=== PATIENT | female | born 1970 | race Caucasian/White ===

== ENCOUNTER → 2020-05-21 13:13 | Outpatient (CLI) | payer OTHER, SELFPAY ==
--- NOTE | ~2020-05-21 | XR_ITS ---
EXAMINATION: XR foot LT 2V EXAM DATE: 05/21/2020 15:16 INDICATION: No known recent injury provided at this time. Pain of the left foot. Arthritis. TECHNIQUE: Frontal and lateral projections of the left foot. Correlation is made to contralateral fo ot same date. FINDINGS: There is mild left 1st metatarsophalangeal joint primary osteoarthritis. There are no bony erosions identified. Small calcaneal inferior spur. There are no acute fractures or dislocations shilpa ntified. There is no subcutaneous gas. The soft tissue is unremarkable. There are no radiopaque f oreign bodies. IMPRESSION: 1. Small left calcaneal inferior spur. 2. Mild 1st MTP osteoarthritis. Reviewed, dictated and finalized at location B. MACHINE
--- NOTE | ~2020-05-21 | XR_ITS ---
EXAMINATION: XR sacroiliac joints min 3V DATE: 05/21/2020 15:16 INDICATION: Chronic joint pain TECHNIQUE: Frontal and left and right oblique views of the lateral sacral iliac joints were obtained. COMPARISON: CT dated 10/02/2016 FINDINGS: Bone alignment is normal. No fracture. Mild bilateral hip and sacroiliac osteoarthritis. No cortical erosions or subarticular sclerosis at the bilateral sacral joints to suggest an inflammatory sacroili itis. IMPRESSION: 1. Mild bilateral hip and sacroiliac osteoarthritis. Reviewed, dictated and finalized at location H. SPECIALIST
--- NOTE | ~2020-05-21 | XR_ITS ---
EXAMINATION: XR hand RT 2V EXAM DATE: 05/21/2020 15:16 INDICATION: Arthritis. Bilateral hand pain. TECHNIQUE: Right hand frontal, lateral projections obtained and reviewed. Correlation is made to cont ralateral hand same date. FINDINGS: Right metacarpal bones are unremarkable. There is mild to moderate 2nd distal interphalang eal primary osteoarthritis. Otherwise mild diffuse polyarticular interphalangeal and 1st carpometaca rpal joint primary osteoarthritis. There are no bony erosions identified. There are no acute fracture s or dislocations identified. There is no subcutaneous gas. The soft tissue is unremarkable. Ther e are no radiopaque foreign bodies. IMPRESSION: Particular osteoarthritis, mild to moderate at the 2nd DIP joint. Reviewed, dictated and finalized at location B. PSYCHOLOGIST
--- NOTE | ~2020-05-21 | XR_ITS ---
EXAMINATION: XR shoulder LT min 2V EXAM DATE: 05/21/2020 15:16 INDICATION: Arthritis, left shoulder pain. TECHNIQUE: The following left shoulder projections obtained: frontal projection with internal rotatio n, frontal projection with external rotation, Grashey, and axillary (4+ views). There is no prior st udy for comparison. FINDINGS: No evidence of left shoulder rotator cuff calcific tendinosis. There is mild glenohumera l and acromioclavicular primary osteoarthritis. There are no acute fractures or dislocations identifi ed. There is no subcutaneous gas. The soft tissue is unremarkable. There are no radiopaque foreig n bodies. IMPRESSION: Mild left shoulder osteoarthritis. Reviewed, dictated and finalized at location B. OMATIC INTERPRETER/TRANSLATOR
--- NOTE | ~2020-05-21 | XR_ITS ---
EXAMINATION: XR hip BI wo pelvis DATE: 05/21/2020 15:18 INDICATION: Arthritis. TECHNIQUE: 2 views of right hip and 2 views of left hip were obtained. COMPARISON: CT abdomen and pelvis 10/02/16 FINDINGS: Bone alignment is normal. No fracture. There is mild osteoarthritis of the hips. There is m ild lumbar spondylosis. IMPRESSION: 1. Mild osteoarthritis of the hips. Reviewed, dictated and finalized at location A. ANICAL ENGINEERING SPECIALIST
--- NOTE | ~2020-05-21 | XR_ITS ---
EXAMINATION: XR foot RT 2V EXAM DATE: 05/21/2020 15:16 INDICATION: Arthritis. Right foot pain. TECHNIQUE: Frontal and lateral projections of the right foot. Correlation is made to contralateral f oot same date. FINDINGS: There is mild right 1st metatarsophalangeal primary osteoarthritis. Small inferior and pos terior calcaneal spurs. There are no bony erosions identified. There are no acute fractures or disloc ations identified. There is no subcutaneous gas. The soft tissue is unremarkable. There are no ra diopaque foreign bodies. IMPRESSION: 1. Small calcaneal spurs. 2. Mild right 1st MTP osteoarthritis. Reviewed, dictated and finalized at location B. DICHLOROBENZENE MACHINE OPERATOR
--- NOTE | ~2020-05-21 | XR_ITS ---
EXAMINATION: XR hand LT 2V EXAM DATE: 05/21/2020 15:16 INDICATION: Arthritis. TECHNIQUE: Frontal and lateral projections of the left hand. Correlation is made to contralateral dinh nd same date. FINDINGS: There is mild diffuse left hand interphalangeal primary osteoarthritis. There are no bony erosions identified. There are no acute fractures or dislocations identified. There is no subcutan eous gas. The soft tissue is unremarkable. There are no radiopaque foreign bodies. IMPRESSION: Mild polyarticular left interphalangeal joint osteoarthritis. Reviewed, dictated and finalized at location B. R CAR DRIVER
== END ==
DX: L40.50 Arthropathic psoriasis, unspecified (principal); M18.11 Unilateral primary osteoarthritis of first carpometacarpal joint, right hand; M19.072 Primary osteoarthritis, left ankle and foot; Z51.81 Encounter for therapeutic drug level monitoring; Z79.899 Other long term (current) drug therapy; M47.818 Spondylosis without myelopathy or radiculopathy, sacral and sacrococcygeal region; M16.0 Bilateral primary osteoarthritis of hip; M19.042 Primary osteoarthritis, left hand; M19.041 Primary osteoarthritis, right hand; M19.071 Primary osteoarthritis, right ankle and foot; M77.32 Calcaneal spur, left foot; M77.31 Calcaneal spur, right foot; M19.012 Primary osteoarthritis, left shoulder; M19.011 Primary osteoarthritis, right shoulder
CPT/HCPCS: 72202; 73030; 73120; 73521; 73620

== ENCOUNTER 2020-11-23 17:33 | Emergency (ER) | payer OTHER, SELFPAY ==
[2020-11-23] VITALS (8 sets, daily range): BP systolic 133–146; BP diastolic 84–87; PULSE 84–105; RESP 12–19; TEMP 36.5–36.8; O2SAT 97–99
--- NOTE | ~2020-11-23 | CT_ITS ---
EXAMINATION: CTA brain carotid DATE: 11/23/2020 20:55 CDT INDICATION: Vision disturbance. TECHNIQUE: Computed tomographic angiography (CTA) of the head was performed without and with 100 mL O mnipaque-350 intravenous contrast. CTA of the neck was performed with intravenous contrast. The dose- length product was 1810.75 mGy-cm. Maximum intensity projection and volume rendered 3D-reconstruction s were created by the technologist on a separate workstation. COMPARISON: CT dated 07/13/2016. FINDINGS: HEAD CT/CTA: CT head limited by contrast administration. No acute intracranial hemorrhage, infarction , mass or mass effect. No ventriculomegaly or midline shift. No abnormal contrast enhancement. The ve rtebral, basilar, anterior, middle and posterior cerebral arteries are unremarkable. No evidence for significant stenosis, occlusion or aneurysm. Orbits are symmetric without disconjugate gaze. No orbit al or retro-orbital abnormalities. NECK CTA: The common and internal carotid arteries are within normal limits without evidence for significant at herosclerotic change, aneurysm, stenosis or dissection. There are mildly prominent cervical and submandibular lymph nodes, likely reactive. Thyroid gland is unremarkable. Lung apices are normal. There is 0% stenosis of the proximal right internal carotid artery relative to normal distal artery l umen diameter (NASCET criteria). There is 0% stenosis of the proximal left internal carotid artery re lative to normal distal artery lumen diameter. IMPRESSION: 1. No acute intracranial abnormality. 2: No significant abnormality of the neck or head arteries. No significant stenosis, occlusion, aneur ysm or dissection. 3: 0% stenosis of the proximal right internal carotid artery relative to normal distal artery lumen d iameter (NASCET criteria). 4: 0% stenosis of the proximal left internal carotid artery relative to normal distal artery lumen di ameter. Reviewed, dictated and finalized at location A. IMPRESSION: 1. No acute intracranial abnormality. 2: No significant abnormality of the neck or head arteries. No significant sten osis, occlusion, aneurysm or dissection. 3: 0% stenosis of the proximal right internal carotid artery relative to normal distal artery lumen diameter (NASCET criteria). 4: 0% stenosis of the proximal left internal carotid artery relative to normal distal artery lumen diameter.
--- NOTE | 2020-11-23 18:51 | ECG_ITS ---
Measurements Intervals [place] Rate: 84 P: 55 [place]: 189 QRS: 78 QRSD: 85 T: 61 QT: 370 QTc: 439 Interpretive Statements SINUS RHYTHM BASELINE ARTIFACT- I, II, III, AVR, AVL, AVF NORMAL ECG Electronically Signed On 11-23-2020 20:02:52 CDT by Idris Lala D.O.
--- NOTE | 2020-11-23 19:38 | ED.GENADULT ---
HPI - General Adult General Chief complaint: Eye Problems Stated complaint: vision problems Time Seen by Provider: 11/23/20 18:03 Source: patient and RN notes reviewed Mode of arrival: ambulatory Limitations: no limitations History of Present Illness HPI narrative: Patient is a 50-year-old female who presents for evaluation of disturbance in the left eye noting that she had a kaleidoscope-like vision out of the left eye that began last night and then was noticed again today patient notes on the way to the emergency department that this had resolved patient denies any focal neurologic deficits or symptoms Related Data Home Medications Medication Instructions Recorded Confirmed adalimumab [Humira(CF) Pen] mg SUBCUT 11/23/20 alprazolam 11/23/20 amlodipine 11/23/20 cetirizine mg 11/23/20 clonidine HCl 11/23/20 losartan 11/23/20 metformin mg 11/23/20 pantoprazole PO 11/23/20 spironolactone 11/23/20 zolpidem 11/23/20 11/23/20 Allergies Allergy/AdvReac Type Severity Reaction Status Date / Time adhesive Allergy Mild Unknown Verified 11/23/20 18:32 latex Allergy Mild Unknown Verified 11/23/20 18:32 vitamin K2 Allergy Unknown Unknown Verified 11/23/20 18:32 morphine AdvReac Unknown Nausea Verified 11/23/20 18:32 Review of Systems Review of Systems: All systems reviewed & are unremarkable except as noted in HPI and below PMFSH Past Medical History Medical History Anxiety Diabetes mellitus Gastroesophageal reflux disease Hypertension Rheumatoid arthritis Social History Social History Smoking status: Never smoker Exam Narrative: Exam Narrative: GENERAL: Well-appearing, well-nourished, and in no acute distress. HEAD: Normocephalic, atraumatic. EYES: PERRLA and EOMI. no conjunctival injection or discharge noted ENT: Nares clear, no rhinorrhea or epistaxis. Mucous membranes moist. NECK: Supple. No adenopathy or masses. CHEST: Clear to auscultation. No respiratory distress. No wheezes rales or rhonchi HEART: Regular rate and rhythm. No murmur heard. Normal peripheral pulses. ABDOMEN: Soft, nontender, nondistended EXTREMITIES: Normal range of motion. No edema. SKIN: Warm, dry, no rash. NEURO: No focal deficits. Alert and oriented x3. Cranial nerves II through XII grossly intact. Normal speech and gait. Cerebellar intact. Motor and sensory intact and symmetrical in extremities PSYCH: Normal mood and affect. Course Course Emergency Course: Patient presented with floaters in the left eye she had resolution prior to discharge that began last night patient at this time is in no distress with normal vision will be discharged home with plan to follow with ophthalmology has been given an emergency plan to go to a tertiary facility with ophthalmology if her symptoms worsen and then if her symptoms remain resolved have her follow-up with ophthalmology outpatient and was given a resource for this. Patient agrees with this plan. Imaging results reviewed with the patient as well as her blood work and evaluation. Vital Signs Vital signs: Vital Signs Temperature 97.7 F 11/23/20 17:45 Pulse Rate 105 H 11/23/20 17:45 Respiratory Rate 16 11/23/20 17:45 Blood Pressure 146/87 H 11/23/20 17:45 Pulse Oximetry 97 11/23/20 17:45 Temperature 98.3 F 11/23/20 18:22 Pulse Rate 95 11/23/20 18:22 Respiratory Rate 18 11/23/20 18:22 Blood Pressure 133/84 11/23/20 18:22 Pulse Oximetry 99 11/23/20 18:22 Medical Decision Making MDM Narrative Medical decision making narrative: Patients visual floaters had resolved. There are no focal neurological deficits on exam. Subarachnoid hemorrhage is felt to be unlikey at this time. There is no history of fever, and neck is supple without meningismus, making meningitis unlikely. No traumatic history or signs of trauma on exam. No risk fact
[2020-11-23 19:47] LABS: Basophils Absolute Auto 0.1 K/mm3 (0.0-0.1); Basophils Percent Auto 0.9 % (0.2-1.2); Eosinophils Absolute Auto 0.2 K/mm3 (0-0.3); Hematocrit 34.1 % (37.0-47.0); Immature Granulocyte Absolute 0.07 K/mm3 (0.00-0.031); Immature Granulocyte Percent A 0.6 % (0-0.5); Lymphocytes Absolute Auto 1.81 K/mm3 (0.9-3.2); Lymphocytes Percent Auto 15.4 % (18.3-44.2); Mean Corpuscular HGB Conc 32.3 g/dl (32-36); Mean Corpuscular Hemoglobin 26.6 pg (26-34); Mean Corpuscular Volume 82.4 fl (80-100); Mean Platelet Volume 11.1 fl (7.4-10.4); Monocytes Absolute Auto 0.6 K/mm3 (0.1-0.6); Neutrophils Percent Auto 76.1 % (45.5-73.1); Platelet Count Result 342 k/mm3 (150-375); Red Blood Count 4.14 M/mm3 (4.2-5.4); Red Cell Distribution Width 15.1 % (11.5-14.5); White Blood Count 11.8 K/mm3 (4.5-10.0)
[2020-11-23 19:57] LABS: Anion Gap 11 mmol/L (8-16); Blood Urea Nitrogen 10 mg/dL (7-17); Calcium 9.2 mg/dL (8.4-10.2); Carbon Dioxide 22 mmol/L (22-30); Chloride 107 mmol/L (98-107); Estimated CRCL calculation 82 ml/min; Estimated Glomerular Filt Rate > 60; Glucose 148 mg/dL (65-105); Partial Thromboplastin Time 30.7 SECONDS (22.3-36.8); Potassium 4.1 mmol/L (3.4-5.0); Prothrombin Time 13.8 Seconds (11.1-14.7); Sodium 140 mmol/L (137-145)
[2020-11-23] MEDS: LORazepam INJ (*CRX) 2 MG/ML VIAL 1 MG IV PUSH (21:13)
== END 2020-11-23 22:10 | disposition home or self-care (01) ==
PROVIDERS: Emergency Medicine Emergency Medical Services; Emergency Provider Emergency Medicine; PCP Family Medicine
DX: H53.9 Unspecified visual disturbance (principal); E11.9 Type 2 diabetes mellitus without complications; K21.9 Gastro-esophageal reflux disease without esophagitis; M06.9 Rheumatoid arthritis, unspecified; F41.9 Anxiety disorder, unspecified; Z79.84 Long term (current) use of oral hypoglycemic drugs
CPT/HCPCS: 36415; 70496; 70498; 80048; 85025; 85610; 85730; 93005; 96374; 99284; J2060; Q9967

== ENCOUNTER 2021-02-09 16:48 | Emergency (ER) | payer OTHER, SELFPAY ==
--- NOTE | ~2021-02-09 | CT_ITS ---
EXAMINATION: CT abdomen pelvis w con DATE: 02/09/2021 18:39 INDICATION: Left flank pain TECHNIQUE: Computed tomography (CT) of the abdomen and pelvis was performed with 100 mL Omnipaque-350 intravenous contrast. Automated exposure control and iterative reconstruction technique were employe d. The dose-length product was 787.10 mGy-cm. COMPARISON: 10/02/2016 FINDINGS: Mild dependent atelectasis in the left lower lobe. Unchanged 3 mm right middle lobe granuloma. Heart size is normal. No pericardial or pleural effusion. Cholecystectomy clips at the gallbladder fossa. M ild diffuse hepatic steatosis. Spleen, pancreas, bilateral adrenal glands and kidneys are normal. Rosendo ateral renal cysts, the larger on the right measuring 12 mm. Bilateral nephrolithiasis including a co uple nonobstructing 2 mm stones at lower pole of the right kidney and 5 mm and 4 mm stones in upper p ole calyx of the left kidney. There is a mildly delayed left nephrogram with mild left hydronephrosis and proximal left hydroureter. Mild enhancing urothelial thickening at the proximal left ureter but no evident obstructing ureteral stone. Status post appendectomy with surgical clips near the tip the cecum. Mild diverticulosis at the sigmoid colon without adjacent inflammatory change to suggest diver ticulitis. No bowel obstruction. 5.7 cm right adnexal cyst. The decompressed bladder is normal. The u terus is not identified and has likely been surgically resected. No free intraperitoneal gas or fluid . No pathologically enlarged abdominal or pelvic lymphadenopathy. Mild to moderate bilateral hip oste oarthritis and mild thoracolumbar spondylosis. IMPRESSION: 1. Bilateral nephrolithiasis with mild left hydronephrosis and proximal hydroureter, mild urothelial enhancement at the proximal ureter and mildly delayed left nephrogram without evident obstructing sto ne suggesting likely sequela of a recently passed stone. 2. 5.7 cm right adnexal cyst. Consider follow-up pelvic ultrasound. Reviewed, dictated and finalized at location A. IMPRESSION: 1. Bilateral nephrolithiasis with mild left hydronephrosis and proximal hydrour eter, mild urothelial enhancement at the proximal ureter and mildly delayed lef t nephrogram without evident obstructing stone suggesting likely sequela of a r ecently passed stone. 2. 5.7 cm right adnexal cyst. Consider follow-up pelvic ultrasound.
[2021-02-09 16:56] VITALS: BP 132/72; PULSE 104; RESP 20; TEMP 36.5; O2SAT 100
[2021-02-09 17:12] LABS: Basophils Absolute Auto 0.1 K/mm3 (0.0-0.1); Basophils Percent Auto 1.1 % (0.2-1.2); Eosinophils Absolute Auto 0.4 K/mm3 (0-0.3); Eosinophils Percent Auto 3.6 % (0-4.4); Hematocrit 31.2 % (37.0-47.0); Immature Granulocyte Absolute 0.07 K/mm3 (0.00-0.031); Immature Granulocyte Percent A 0.6 % (0-0.5); Lymphocytes Absolute Auto 1.93 K/mm3 (0.9-3.2); Lymphocytes Percent Auto 17.6 % (18.3-44.2); Mean Corpuscular HGB Conc 32.1 g/dl (32-36); Mean Corpuscular Hemoglobin 27.1 pg (26-34); Mean Corpuscular Volume 84.6 fl (80-100); Mean Platelet Volume 11.2 fl (7.4-10.4); Monocytes Absolute Auto 0.7 K/mm3 (0.1-0.6); Monocytes Percent Auto 6.6 % (2.6-8.5); Neutrophils Absolute Auto 7.7 K/mm3 (1.3-6.7); Neutrophils Percent Auto 70.5 % (45.5-73.1); Platelet Count Result 341 k/mm3 (150-375); Red Blood Count 3.69 M/mm3 (4.2-5.4)
[2021-02-09 17:25] LABS: Anion Gap 12 mmol/L (8-16); Blood Urea Nitrogen 14 mg/dL (7-17); Calcium 9.7 mg/dL (8.4-10.2); Carbon Dioxide 21 mmol/L (22-30); Chloride 106 mmol/L (98-107); Estimated CRCL calculation 65 ml/min; Estimated Glomerular Filt Rate 58; Glucose 116 mg/dL (65-110); Potassium 4.3 mmol/L (3.4-5.0); Sodium 139 mmol/L (137-145)
[2021-02-09 18:07] LABS: Add Urine Microscopic? YES; Appearance Urine Cloudy (Clear); Bacteria Urine Trace /hpf; Bilirubin Urine Negative (Negative); Blood Urine 3+ (Negative); Color Urine Yellow (Yellow); Glucose Urine UA Negative (Negative); Ketones Urine Negative (Negative); Leukocyte Esterase Ur Negative LEU/UL (Negative); Mucus Urine Rare /lpf; Nitrate Urine Negative (Negative); Protein Urine 2+ mg/dL (Negative); RBC Urine 21-50 /hpf (0-2); Specific Grav Ur 1.018 (1.001-1.035); Urobilinogen Urine Negative mg/dL (<2.0); WBC Urine 0-3 /hpf
--- NOTE | 2021-02-09 18:26 | ED.GENADULT ---
HPI - General Adult General Chief complaint: Urogenital-Female Stated complaint: kidney pain, left side Time Seen by Provider: 02/09/21 17:50 Source: patient Mode of arrival: ambulatory Limitations: no limitations History of Present Illness HPI narrative: Patient presents for evaluation of left flank pain. Symptom onset several hours prior to arrival. She states last year primary care provider identified protein urea. She was referred to nephrology and had a kidney biopsy less than 1 month ago. She was told she has IgA nephropathy. She states she went to her cabin in [place] following the biopsy. While she was there, she experienced some left flank pain. Shortly thereafter, she noted black sediment in her urine, and pain resolved shortly thereafter. She thought the sediment could be residual blood from biopsy or perhaps kidney stones. She has had kidney stones in the past. Today, she and her family were driving back to the area from [place] when she had left flank pain. It progressively worsened and she currently rates pain 10/10. She has associated nausea without vomiting. No fever or chills. She indicates that her urine has a dark appearance as of today. She states that she has rectal bleeding, which is not new. In fact she has experienced rectal bleeding for years. She has a hx of psoriatic arthritis, colitis, and hemorrhoids. She has also had pancreatitis in the past. Related Data Home Medications Medication Instructions Recorded Confirmed alprazolam 11/23/20 amlodipine 11/23/20 cetirizine mg 11/23/20 clonidine HCl 11/23/20 losartan 11/23/20 metformin mg 11/23/20 pantoprazole PO 11/23/20 spironolactone 11/23/20 zolpidem 11/23/20 11/23/20 ferrous sulfate 02/09/21 vitamin E 02/09/21 Allergies Allergy/AdvReac Type Severity Reaction Status Date / Time adhesive Allergy Mild Unknown Verified 02/09/21 18:00 latex Allergy Mild Unknown Verified 02/09/21 18:00 vitamin K2 Allergy Unknown Unknown Verified 02/09/21 18:00 morphine AdvReac Unknown Nausea Verified 02/09/21 18:00 Review of Systems Review of Systems: CONSTITUTIONAL: Denies fever, chills, or sweats. EYES: Denies visual changes, redness, or discharge. ENT: Denies rhinorrhea, congestion, sore throat, or otalgia. CARDIOVASCULAR: Denies chest pain, palpitations, or edema. RESPIRATORY: Denies cough or dyspnea. GASTROINTESTINAL: Reports left flank pain and abdominal pain. Reports nausea, vomiting. Denies constipation and diarrhea GENITOURINARY: Reports concentrated urine. Denies dysuria or hematuria. SKIN: Denies rash or itching. MUSCULOSKELETAL: Denies back pain, joint pain, or myalgia. NEUROLOGIC: Denies headache, numbness, dizziness, or weakness. PSYCHIATRIC: Denies anxiety or depression. [facility] Past Medical History Medical History Anxiety Diabetes mellitus Gastroesophageal reflux disease Hypertension IgA nephropathy Kidney stone Rheumatoid arthritis Surgical History Surgical History History of appendectomy History of cholecystectomy History of hysterectomy Family History Family History Mother No pertinent past medical history Social History Social History Smoking status: Never smoker Substance use: never Living arrangements: with family Gender identity (if verbalized by the patient): Female Sexual Orientation (if Verbalized by the Patient): Straight or Heterosexual Spiritual care concerns: No Exam Narrative: GENERAL: Visibly uncomfortable HEAD: Normocephalic, atraumatic. EYES: PERRLA and EOMI. ENT: Nares clear, no rhinorrhea or epistaxis. Mucous membranes moist. Oropharynx without tonsillar hypertrophy exudate or other lesions. Bilateral TMs pearly taylor nonbulgin
[2021-02-09] MEDS: fentaNYL CITRATE INJ (*CRX) 100 MCG/2 ML VIAL 50 MCG IV PUSH ×2 (18:28→18:50)
[2021-02-09] MEDS: ONDANSETRON INJ 4 MG/2 ML VIAL IV PUSH (18:28)
[2021-02-09 18:39] LABS: Alanine Aminotransferase 18 U/L (4-35); Albumin Level 4.6 g/dL (3.5-5.1); Alkaline Phosphatase 104 U/L (38-126); Aspartate Amino Transferase 25 U/L (14-36); Bilirubin,Total 0.2 mg/dL (0.2-1.3); Lipase 72 U/L (23-300)
[2021-02-09] MEDS: SODIUM CHLORIDE 0.9% IV 1,000 ML 999 ML IV CONT (18:43)
[2021-02-09 18:53] VITALS: BP 139/81; PULSE 102; RESP 18; O2SAT 95
[2021-02-09 18:58] VITALS: TEMP 36.5
[2021-02-09 19:33] VITALS: BP 143/94; PULSE 107; RESP 22; O2SAT 100
[2021-02-09] MEDS: KETOROLAC 30 MG/ML VIAL (*BKC) IV PUSH (19:33)
[2021-02-09] MEDS: ONDANSETRON INJ 4 MG/2 ML VIAL (19:50)
[2021-02-09] MEDS: oxyCODONE/ACETAMINOPHEN (*CRX) 5-325 MG TABLET 2 TABLET PO (21:50)
[2021-02-09 22:05] VITALS: BP 130/74; PULSE 100; RESP 18; O2SAT 100
== END 2021-02-09 22:06 | disposition home or self-care (01) ==
PROVIDERS: Emergency Medicine; Emergency Provider Nurse Practitioner; PCP Family Medicine
DX: N13.2 Hydronephrosis with renal and ureteral calculous obstruction (principal); N83.201 Unspecified ovarian cyst, right side; N02.8 Recurrent and persistent hematuria with other morphologic changes; E11.9 Type 2 diabetes mellitus without complications; K21.9 Gastro-esophageal reflux disease without esophagitis; I10 Essential (primary) hypertension; M06.9 Rheumatoid arthritis, unspecified; F41.9 Anxiety disorder, unspecified; Z87.442 Personal history of urinary calculi; Z79.84 Long term (current) use of oral hypoglycemic drugs
CPT/HCPCS: 36415; 74177; 80048; 80076; 81001; 83690; 85025; 96361; 96374; 96375; 96376; 99284; A9270; J1885; J2405; J3010; J7030; Q9967

== ENCOUNTER 2022-11-10 14:39 | Emergency (ER) | payer OTHER, SELFPAY ==
[2022-11-10] VITALS (11 sets, daily range): BP systolic 130–167; BP diastolic 55–108; PULSE 75–106; RESP 15–24; TEMP 36.2–36.6; O2SAT 96–100
--- NOTE | ~2022-11-10 | XR_ITS ---
EXAMINATION: XR chest 2V DATE: 11/10/2022 15:21 INDICATION: Chest pain. TECHNIQUE: Frontal and lateral views of the chest were obtained. COMPARISON: Chest single view 07/13/2016, CT abdomen and pelvis 02/09/2021 FINDINGS: The chest demonstrates clear lungs without pneumonia, pleural effusion, or pneumothorax. Th e heart size is normal. Surgical clips in the right upper quadrant are likely from cholecystectomy. T here is mild chronic anterior wedging of T11 and T12 vertebral bodies. IMPRESSION: 1. No acute cardiopulmonary disease. Reviewed, dictated and finalized at location A.
--- NOTE | 2022-11-10 14:40 | ECG_ITS ---
Measurements Intervals [place] Rate: 91 P: 46 [place]: 197 QRS: 20 QRSD: 98 T: 54 QT: 363 QTc: 447 Interpretive Statements SINUS RHYTHM WITH SINUS ARRHYTHMIA DELAYED PRECORDIAL R/S TRANSITION BORDERLINE ECG COMPARED TO ECG 11/23/2020 19:29:04 SINUS ARRHYTHMIA NOW PRESENT Electronically Signed On 11-10-2022 15:32:02 CDT by Idris Lala D.O.
[2022-11-10 14:57] LABS: Basophils Absolute Auto 0.1 K/mm3 (0.0-0.1); Basophils Percent Auto 1.3 % (0.2-1.2); Eosinophils Absolute Auto 0.4 K/mm3 (0-0.3); Eosinophils Percent Auto 6.2 % (0-4.4); Hematocrit 35.5 % (37.0-47.0); Hemoglobin 11.8 g/dL (12.0-15.0); Immature Granulocyte Absolute 0.08 K/mm3 (0.00-0.031); Immature Granulocyte Percent A 1.3 % (0-0.5); Lymphocytes Percent Auto 21.1 % (18.3-44.2); Mean Corpuscular HGB Conc 33.2 g/dl (32-36); Mean Corpuscular Hemoglobin 28.5 pg (26-34); Mean Corpuscular Volume 85.7 fl (80-100); Mean Platelet Volume 10.5 fl (7.4-10.4); Monocytes Absolute Auto 0.5 K/mm3 (0.1-0.6); Neutrophils Absolute Auto 3.8 K/mm3 (1.3-6.7); Neutrophils Percent Auto 62.1 % (45.5-73.1); Platelet Count Result 268 k/mm3 (150-375); Red Blood Count 4.14 M/mm3 (4.2-5.4); Red Cell Distribution Width 13.2 % (11.5-14.5); White Blood Count 6.2 K/mm3 (4.5-10.0)
[2022-11-10 15:18] LABS: Alanine Aminotransferase 29 U/L (6-35); Albumin Level 4.5 g/dL (3.5-5.1); Alkaline Phosphatase 76 U/L (38-126); Anion Gap 12 mmol/L (8-16); Aspartate Amino Transferase 31 U/L (14-36); Bilirubin,Total 0.5 mg/dL (0.2-1.3); Blood Urea Nitrogen 12 mg/dL (7-17); Calcium 8.9 mg/dL (8.4-10.2); Carbon Dioxide 22 mmol/L (22-30); Chloride 102 mmol/L (98-107); Estimated CRCL calculation 64 ml/min; Estimated Glomerular Filt Rate 58; Glucose 224 mg/dL (65-110); Lipase 302 U/L (23-300); Partial Thromboplastin Time 29.8 SECONDS (22.3-36.8); Potassium 3.9 mmol/L (3.4-5.0); Prothrombin Time 14.1 Seconds (11.1-14.7); Sodium 136 mmol/L (137-145)
[2022-11-10 15:19] LABS: Troponin I < 0.012 ng/mL (0.000-0.034)
[2022-11-10] MEDS: ASPIRIN 81 MG CHEWABLE TABLET 324 MG PO (15:55)
--- NOTE | 2022-11-10 17:14 | ED.GENADULT ---
HPI - General Adult General Chief complaint: Chest Pain Stated complaint: chest pain Time Seen by Provider: 11/10/22 15:57 History of Present Illness HPI narrative: 52-year-old female presented the emergency department for evaluation of chest pain that occurred yesterday and a left-sided sub-conjunctival hemorrhage. Patient states over the last few days she had been cleaning the carpets and had been bending over but did not notice the subconjunctival hemorrhage. Patient did have a stress test approximately 10 years ago. Patient denies any current chest pain chest pressure or chest tightness. Patient states she is anxious and does have a headache. Patient has been following up with her primary care physician to have her blood pressure medications adjusted. Patient was having issues with vertigo and dizziness related to too many blood pressure medications. Patient had her spironolactone and her clonidine stopped. Related Data Home Medications Medication Instructions Recorded Confirmed alprazolam 0.25 mg tablet 11/23/20 amlodipine 5 mg tablet 11/23/20 cetirizine 10 mg tablet mg 11/23/20 clonidine HCl 0.1 mg tablet 11/23/20 losartan 100 mg tablet 11/23/20 metformin 500 mg tablet mg 11/23/20 pantoprazole 40 mg tablet,delayed PO 11/23/20 release spironolactone 25 mg tablet 11/23/20 zolpidem 10 mg tablet 11/23/20 11/23/20 ferrous sulfate 02/09/21 vitamin E 02/09/21 Allergies Allergy/AdvReac Type Severity Reaction Status Date / Time adhesive Allergy Mild Unknown Verified 11/10/22 16:07 latex Allergy Mild Unknown Verified 11/10/22 16:07 codeine Allergy Unknown Unknown Verified 11/10/22 16:07 vitamin K2 Allergy Unknown Unknown Verified 11/10/22 16:07 morphine AdvReac Unknown Nausea Verified 11/10/22 16:07 Review of Systems Review of Systems: All systems reviewed & are unremarkable except as noted in HPI and below PMFSH Past Medical History Medical History Anxiety Diabetes mellitus Gastroesophageal reflux disease Hypertension IgA nephropathy Kidney stone Rheumatoid arthritis Surgical History Surgical History History of appendectomy History of cholecystectomy History of hysterectomy Family History Family History (Reviewed 02/09/21 @ 18:28 by Francisco Birch, [facility], ) Mother No pertinent past medical history Social History Social History (System 02/20/21 @ 11:12 by Christianne Martin) Smoking status: Never smoker Substance use: never Living arrangements: with family Gender identity (if verbalized by the patient): Female Sexual Orientation (if Verbalized by the Patient): Straight or Heterosexual Spiritual care concerns: No Exam Narrative: APPEARANCE: Well appearing, no pain, no distress, well-nourished. HEAD: normocephalic, atraumatic. EYES: PERRLA/EOMI, left-sided subconjunctival hemorrhage, normal fundus exam NOSE: Normal no drainage EARS:TMS clear with good light reflex. THROAT: Pharynx clear, no exudate. NECK: Supple. No adenopathy, no masses. RESPIRATORY: Airway patent, respirations nonlabored. Clear to auscultation bilaterally, no rales, rhonchi, wheezing. CARDIOVASCULAR: Regular rate and rhythm without murmurs rubs or gallops. ABDOMINAL: Soft, nontender, nondistended, normal bowel sounds MUSCULOSKELETAL: Moves all extremities. Strength/ROM intact, No edema, No calf tenderness. NEURO: Alert. Cranial nerves II through XII intact. Grossly intact Course Course Emergency Course: 52-year-old female presented the ED for evaluation of of chest pain. Patient was afebrile with no leukocytosis. Patient's hemoglobin is stable. Patient had negative serial troponins. Patient's lipase was also within normal limits. Chest x-ray showed no acute cardiopulmonary abnormality. EKG showed normal sinus rhythm with sinus arrhythmia. Patient was updated o
[2022-11-10] MEDS: LORazepam INJ (*CRX) 2 MG/ML VIAL 0.5 MG IV PUSH (17:27)
[2022-11-10 18:11] LABS: Troponin I < 0.012 ng/mL (0.000-0.034)
== END 2022-11-10 19:16 | disposition home or self-care (01) ==
PROVIDERS: Emergency Medicine; Emergency Provider Emergency Medicine; PCP Family Medicine
DX: R07.9 Chest pain, unspecified (principal); H11.32 Conjunctival hemorrhage, left eye; E11.9 Type 2 diabetes mellitus without complications; I10 Essential (primary) hypertension; N02.8 Recurrent and persistent hematuria with other morphologic changes; M06.9 Rheumatoid arthritis, unspecified; K21.9 Gastro-esophageal reflux disease without esophagitis; Z87.442 Personal history of urinary calculi; Z79.84 Long term (current) use of oral hypoglycemic drugs
CPT/HCPCS: 36415; 71046; 80053; 83690; 84484; 85025; 85610; 85730; 93005; 96374; 96375; 99284; A9270; J0131; J2060

== ENCOUNTER 2023-09-02 00:02 | Emergency (ER) | payer OTHER, SELFPAY ==
[2023-09-02] VITALS (14 sets, daily range): BP systolic 148–169; BP diastolic 84–103; PULSE 88–103; RESP 14–21; TEMP 36.2; O2SAT 94–100
--- NOTE | ~2023-09-02 | XR_ITS ---
Clinical Indication: Chest pain PA and lateral views of the chest: Comparison: 11/10/2022 Findings: The lungs are clear, without evidence of focal consolidation or pleural effusion. Cardiome diastinal silhouette is within normal limits. Bones and soft tissues are unremarkable. Impression: Normal chest. Reviewed, dictated and finalized at [facility]. [employer] FORMULATION SCIENTIST Impression: Normal chest.
--- NOTE | ~2023-09-02 | CT_ITS ---
Clinical Indication: Chest pain CT Scan of the Chest with Contrast: Technique: Contiguous sections were acquired throughout the chest after intravenous administration of 100 cc of Omnipaque 350. Dose reduction technique was used on this scan by utilizing automated expos ure control and iterative reconstruction technique. The dose-length product (DLP) was 689.11 mGy-cm. Findings: There is no evidence of any significant mediastinal, hilar or axillary lymphadenopathy. There is no f illing defect in the pulmonary arterial tree to suggest pulmonary embolus. There is no evidence of ao rtic dissection or aneurysm. There is no evidence of pleural or pericardial effusion. 3 mm right middle lobe pulmonary nodule noted. Images through the upper abdomen reveal a 1.3 cm left adrenal nodule, indeterminate. 8 mm nonobstruct ing left renal stone noted. There is diffuse fatty infiltration of liver and cholecystectomy clips. Impression: No evidence of pulmonary embolus, aortic dissection, or aortic aneurysm. No acute abnormality seen. 3 mm right middle lobe pulmonary nodule. According to Fleischner Society criteria, for a low-risk pat ient, no further follow-up required. For a high-risk patient, consider 12 month follow-up CT. 1.2 cm left adrenal nodule, indeterminate, statistically most likely adenoma. 8 mm nonobstructing left renal stone. Reviewed, dictated and finalized at [facility]. [place] SAFETY OFFICER Impression: No evidence of pulmonary embolus, aortic dissection, or aortic aneurysm. No acute abnormality seen. 3 mm right middle lobe pulmonary nodule. According to Fleischner Society criter ia, for a low-risk patient, no further follow-up required. For a high-risk myla ent, consider 12 month follow-up CT. 1.2 cm left adrenal nodule, indeterminate, statistically most likely adenoma. 8 mm nonobstructing left renal stone.
--- NOTE | 2023-09-02 00:03 | ECG_ITS ---
Measurements Intervals [place] Rate: 95 P: 36 [place]: 191 QRS: 10 QRSD: 81 T: 51 QT: 345 QTc: 434 Interpretive Statements SINUS RHYTHM LEFT VENTRICULAR HYPERTROPHY CONSIDER INFERIOR INFARCT, AGE INDETERMINATE BASELINE ARTIFACT- I, III, AVR, AVL, V4-V6 ABNORMAL ECG COMPARED TO ECG 11/10/2022 14:44:31 NO SIGNIFICANT CHANGES Electronically Signed On 09-02-2023 16:31:50 EYEGLASS FRAMES POLISHER by Idris Lala D.O.
[2023-09-02 00:19] LABS: Basophils Absolute Auto 0.1 K/mm3 (0.0-0.1); Basophils Percent Auto 1.2 % (0.2-1.2); Eosinophils Absolute Auto 0.2 K/mm3 (0-0.3); Eosinophils Percent Auto 1.8 % (0-4.4); Hematocrit 40.7 % (37.0-47.0); Hemoglobin 13.6 g/dL (12.0-15.0); Immature Granulocyte Absolute 0.04 K/mm3 (0.00-0.031); Immature Granulocyte Percent A 0.4 % (0-0.5); Lymphocytes Absolute Auto 1.81 K/mm3 (0.9-3.2); Lymphocytes Percent Auto 17.4 % (18.3-44.2); Mean Corpuscular HGB Conc 33.4 g/dl (32-36); Mean Corpuscular Hemoglobin 29.2 pg (26-34); Mean Corpuscular Volume 87.5 fl (80-100); Mean Platelet Volume 11.1 fl (7.4-10.4); Monocytes Absolute Auto 0.6 K/mm3 (0.1-0.6); Monocytes Percent Auto 6.2 % (2.6-8.5); Neutrophils Absolute Auto 7.6 K/mm3 (1.3-6.7); Platelet Count Result 330 k/mm3 (150-375); Red Blood Count 4.65 M/mm3 (4.2-5.4); Red Cell Distribution Width 13.3 % (11.5-14.5); White Blood Count 10.4 K/mm3 (4.5-10.0)
[2023-09-02 00:30] LABS: INR 0.9; Partial Thromboplastin Time 29.4 SECONDS (22.3-36.8); Prothrombin Time 12.9 Seconds (11.1-14.7)
[2023-09-02 00:31] LABS: Alanine Aminotransferase 24 U/L (6-35); Albumin Level 4.7 g/dL (3.5-5.1); Alkaline Phosphatase 107 U/L (38-126); Anion Gap 14 mmol/L (8-16); Aspartate Amino Transferase 31 U/L (14-36); Bilirubin,Total 0.5 mg/dL (0.2-1.3); Blood Urea Nitrogen 18 mg/dL (7-17); Calcium 10.2 mg/dL (8.4-10.2); Carbon Dioxide 22 mmol/L (22-30); Chloride 103 mmol/L (98-107); Estimated CRCL calculation 69 ml/min; Estimated Glomerular Filt Rate > 60; Glucose 217 mg/dL (65-110); Lipase 122 U/L (23-300); Potassium 4.3 mmol/L (3.4-5.0); Sodium 139 mmol/L (137-145)
[2023-09-02 00:43] LABS: Troponin I < 0.012 ng/mL (0.000-0.034)
--- NOTE | 2023-09-02 03:12 | ED.CHESTPAIN ---
HPI - Chest Pain General Chief Complaint: Chest Pain Stated Complaint: Chest, neck, back pain Time Seen by Provider: 09/02/23 02:48 History of Present Illness HPI narrative: Patient is a 53-year-old female who presents to the emergency department this evening complaining of left-sided neck, shoulder, trapezius and chest pain. Patient states that the chest pain radiates to her left shoulder blades. She admits that symptoms started yesterday morning when she woke and thought that maybe she slept wrong all pulled a muscle. Patient states that she cannot take any NSAIDs due to a history of IgA nephropathy which limits what pain medications she can take. Patient also states that all oral pills tend to upset her stomach as she has a very sensitive stomach. Patient denies any history of cardiovascular disease or any history of coronary artery disease. She is currently denying any shortness of breath, nausea, vomiting, abdominal pain, headaches, dizziness, lightheadedness. Patient also denies any focal weakness, numbness and tingling. There are no other modifying, alleviating, or precipitating factors at this time. Related Data Home Medications Medication Instructions Recorded Confirmed alprazolam 0.25 mg tablet 11/23/20 amlodipine 5 mg tablet 11/23/20 cetirizine 10 mg tablet mg 11/23/20 clonidine HCl 0.1 mg tablet 11/23/20 losartan 100 mg tablet 11/23/20 metformin 500 mg tablet mg 11/23/20 pantoprazole 40 mg tablet,delayed PO 11/23/20 release spironolactone 25 mg tablet 11/23/20 zolpidem 10 mg tablet 11/23/20 11/23/20 ferrous sulfate 02/09/21 vitamin E 02/09/21 Allergies Allergy/AdvReac Type Severity Reaction Status Date / Time adhesive Allergy Mild Unknown Verified 11/10/22 16:07 latex Allergy Mild Unknown Verified 11/10/22 16:07 codeine Allergy Unknown Unknown Verified 11/10/22 16:07 menaquinone-7 (vitamin K2) Allergy Unknown Unknown Verified 11/10/22 16:07 [vitamin K2] morphine AdvReac Unknown Nausea Verified 11/10/22 16:07 Review of Systems Review of Systems: All systems are reviewed and are negative unless stated otherwise in the HPI. [facility] Past Medical History Medical History Anxiety Diabetes mellitus Gastroesophageal reflux disease Hypertension IgA nephropathy Kidney stone Rheumatoid arthritis Surgical History Surgical History History of appendectomy History of cholecystectomy History of hysterectomy Family History Family History Mother No pertinent past medical history Father Diabetes mellitus Family history of cardiovascular disease Mother Family history of emphysema Social History Social History Smoking status: Never smoker Substance use: never Living arrangements: with family Gender identity (if verbalized by the patient): Female Sexual Orientation (if Verbalized by the Patient): Straight or Heterosexual Spiritual care concerns: No Exam Narrative: General: Alert, awake, afebrile, in no acute distress. HEENT: PERRL, no rhinorrhea, no post nasal drip, oropharynx clear. Neck: Trachea midline, no JVD, no lymphadenopathy. Cardiovascular: Regular rate and rhythm, no murmurs, rubs or gallops, no peripheral edema. Respiratory: Clear to auscultation bilaterally, no tachypnea, no wheezing, no rhonchi, no rubs, no respiratory distress. Abdomen: Soft, nontender, nondistended, no rebound, no guarding, no peritoneal signs. Musculoskeletal: No joint swelling or deformity, normal muscle tone. Skin: No rashes or petechia, no signs of infection. Psychiatric: Alert and oriented, normal behavior and judgment for situation. Neurological: Alert and oriented to person, place, and time. Follows all commands. No focal deficits, speech is clear and fluent.
[2023-09-02] MEDS: ONDANSETRON INJ 4 MG/2 ML VIAL IV PUSH (03:30)
[2023-09-02] MEDS: MORPHINE SULFATE (*CRX) 2 MG/ML INJ IV PUSH (03:32)
[2023-09-02 04:02] LABS: Troponin I < 0.012 ng/mL (0.000-0.034)
[2023-09-02 04:45] LABS: Influenza A QL RT-PCR Negative (Negative); Influenza B QL RT-PCR Negative (Negative); RSV RNA, RT-PCR Negative (Negative); SARS-CoV-2 RNA PCR Negative (Negative)
== END 2023-09-02 07:24 | disposition home or self-care (01) ==
PROVIDERS: Emergency Provider Emergency Medicine; PCP Family Medicine
DX: R07.89 Other chest pain (principal); S29.012A Strain of muscle and tendon of back wall of thorax, initial encounter; Z20.822 Contact with and (suspected) exposure to COVID-19; F41.9 Anxiety disorder, unspecified; E11.9 Type 2 diabetes mellitus without complications; K21.9 Gastro-esophageal reflux disease without esophagitis; I10 Essential (primary) hypertension; Z87.442 Personal history of urinary calculi; Z79.84 Long term (current) use of oral hypoglycemic drugs; X58.XXXA Exposure to other specified factors, initial encounter
CPT/HCPCS: 36415; 71046; 71275; 80053; 83690; 84484; 85025; 85610; 85730; 87637; 93005; 96374; 96375; 99284; J2270; J2405; Q9967

== ENCOUNTER 2023-09-07 21:15 | Observation (INO) | payer OTHER, SELFPAY ==
[2023-09-07] VITALS (13 sets, daily range): BP systolic 153–183; BP diastolic 83–103; PULSE 87–115; RESP 14–22; TEMP 36.4; O2SAT 91–100
--- NOTE | ~2023-09-07 | CT_ITS ---
EXAMINATION: CTA brain carotid DATE: 09/07/2023 23:10 INDICATION: paresthesias, dizziness TECHNIQUE: Computed tomographic angiography (CTA) of the head was performed without and with 100 mL O mnipaque-350 intravenous contrast. CTA of the neck was performed with intravenous contrast. Automated exposure control and iterative reconstruction technique were employed. The dose-length product was 1 573.15 mGy-cm. Maximum intensity projection and volume rendered 3D-reconstructions were created by dannie damon technologist on a separate workstation. COMPARISON: 11/23/2020. FINDINGS: CT BRAIN: No acute large vessel infarct, intracranial hemorrhage, mass, or hydrocephalus. CTA HEAD: No large vessel occlusion, aneurysm, high flow vascular malformation, nidus or extravasation. CTA NECK: Aortic arch and proximal great vessels: Atherosclerotic calcifications at the visualized aortic arch and proximal great vessels. Right common carotid, carotid bifurcation, and internal carotid artery: No significant plaque.There i s 0% stenosis of the proximal right internal carotid artery relative to normal distal artery lumen di ameter (NASCET criteria). Left common carotid, carotid bifurcation, and internal carotid artery: Mild calcified plaque in the c arotid bulb.There is 0% stenosis of the proximal left internal carotid artery relative to normal dist al artery lumen diameter (NASCET criteria). Vertebral arteries: No significant plaque or stenosis. Other findings: Degenerative change in the cervical spine. Dental implants. IMPRESSION: No acute intracranial process. No large vessel intracranial occlusion, high-grade intracranial stenosis, or aneurysm. No carotid or vertebral artery occlusion, dissection, or significant stenosis. Reviewed, dictated and finalized at location [facility]. IMPRESSION: No acute intracranial process. No large vessel intracranial occlusion, high-grade intracranial stenosis, or an eurysm. No carotid or vertebral artery occlusion, dissection, or significant stenosis.
--- NOTE | ~2023-09-07 | XR_ITS ---
EXAMINATION: XR chest 2V Exam Date/Time: 09/07/2023 21:39 CDT HISTORY: palpitations, weakness x 1 week Comparison: 09/02/2023. RESULT: Lines, tubes, and devices: None. Lungs and pleura: Clear. Cardiomediastinal silhouette: Stable. Other: No acute osseous or upper abdominal finding. IMPRESSION: No acute cardiopulmonary process. Reviewed, dictated and finalized at location [facility].
--- NOTE | ~2023-09-07 | MR_ITS ---
MRI of the brain Clinical History: Dizziness Technique: Axial and sagittal T1-weighted images were acquired. These were followed by axial T2-weigh donna, diffusion weighted, gradient, and FLAIR images. Following intravenous administration of 18 cc Mu ltiHance gadolinium, T1-weighted fat-sat imaging was performed in the axial and coronal planes. Findings: There is no acute infarct, intracranial hemorrhage, mass lesion. There are moderate chronic white matter changes in the periventricular white matter bilaterally. Ventricles and subarachnoid spaces are unremarkable. Orbits are unremarkable. Paranasal sinuses and m astoid air cells are clear. Major intracranial flow voids are intact. Sagittal midline structures are intact. No abnormal postcontrast enhancement identified. IMPRESSION: Moderate probable chronic microvascular ischemic changes. No definite acute abnormality seen. Reviewed, dictated and finalized at location .
--- NOTE | 2023-09-07 21:22 | ECG_ITS ---
Measurements Intervals [place] Rate: 92 P: 27 DC: 198 QRS: -6 QRSD: 86 T: 52 QT: 360 QTc: 445 Interpretive Statements SINUS RHYTHM LEFT VENTRICULAR HYPERTROPHY BASELINE WANDER- AVR, AVL, AVF, V4-V6 BORDERLINE ECG COMPARED TO ECG 09/02/2023 00:07:42 NO SIGNIFICANT CHANGES Electronically Signed On 09-08-2023 6:25:21 CDT by Idris Lala D.O.
[2023-09-07 21:44] LABS: Basophils Absolute Auto 0.1 K/mm3 (0.0-0.1); Basophils Percent Auto 1.1 % (0.2-1.2); Eosinophils Absolute Auto 0.2 K/mm3 (0-0.3); Eosinophils Percent Auto 2.7 % (0-4.4); Hematocrit 39.3 % (37.0-47.0); Hemoglobin 12.9 g/dL (12.0-15.0); Immature Granulocyte Absolute 0.04 K/mm3 (0.00-0.031); Immature Granulocyte Percent A 0.5 % (0-0.5); Lymphocytes Absolute Auto 1.45 K/mm3 (0.9-3.2); Lymphocytes Percent Auto 19.7 % (18.3-44.2); Mean Corpuscular HGB Conc 32.8 g/dl (32-36); Mean Corpuscular Hemoglobin 28.5 pg (26-34); Mean Corpuscular Volume 86.8 fl (80-100); Mean Platelet Volume 11.5 fl (7.4-10.4); Monocytes Absolute Auto 0.6 K/mm3 (0.1-0.6); Monocytes Percent Auto 7.6 % (2.6-8.5); Neutrophils Percent Auto 68.4 % (45.5-73.1); Platelet Count Result 290 k/mm3 (150-375); Red Blood Count 4.53 M/mm3 (4.2-5.4); Red Cell Distribution Width 12.5 % (11.5-14.5); White Blood Count 7.4 K/mm3 (4.5-10.0)
[2023-09-07 21:55] LABS: Prothrombin Time 13.8 Seconds (11.1-14.7)
[2023-09-07 21:56] LABS: Partial Thromboplastin Time 29.8 SECONDS (22.3-36.8)
[2023-09-07 22:01] LABS: Anion Gap 11 mmol/L (8-16); Blood Urea Nitrogen 14 mg/dL (7-17); Carbon Dioxide 23 mmol/L (22-30); Chloride 99 mmol/L (98-107); Estimated CRCL calculation 63 ml/min; Estimated Glomerular Filt Rate 58; Glucose 170 mg/dL (65-110); Potassium 4.1 mmol/L (3.4-5.0); Sodium 133 mmol/L (137-145)
[2023-09-07 22:02] LABS: Alanine Aminotransferase 30 U/L (6-35); Albumin Level 4.6 g/dL (3.5-5.1); Alkaline Phosphatase 88 U/L (38-126); Aspartate Amino Transferase 38 U/L (14-36); Bilirubin,Total 0.6 mg/dL (0.2-1.3); Lipase 91 U/L (23-300)
[2023-09-07 22:13] LABS: Troponin I < 0.012 ng/mL (0.000-0.034)
[2023-09-07 23:09] LABS: Magnesium 1.6 mg/dL (1.6-2.3)
[2023-09-07] MEDS: ASPIRIN 81 MG CHEWABLE TABLET 324 MG PO (23:12)
[2023-09-07] MEDS: SODIUM CHLORIDE 0.9% IV 1,000 ML 999 ML IV CONT (23:13)
[2023-09-07 23:31] LABS: Appearance Urine Clear (Clear); Bacteria Urine None Seen /hpf; Bilirubin Urine Negative (Negative); Blood Urine Trace (Negative); Color Urine Yellow (Yellow); Glucose Urine UA 3+ mg/dL (Negative); Ketones Urine Negative (Negative); Leukocyte Esterase Ur Negative LEU/UL (Negative); Nitrate Urine Negative (Negative); Non Pathogenic Casts 0-2; Protein Urine 2+ mg/dL (Negative); RBC Urine 0-2 /hpf (0-2); Specific Grav Ur 1.014 (1.001-1.035); Squamous Epithelial Cell Urine None seen /hpf (Few); Urobilinogen Urine 0.2 mg/dL (<2.0); WBC Urine 0-5 /hpf; pH Urine 5.5 (5.0-9.0)
[2023-09-07] MEDS: ONDANSETRON INJ 4 MG/2 ML VIAL IV PUSH (23:42)
[2023-09-07] MEDS: MAGNESIUM SULF 2 GM/WATER 50ML 2 GM/50 ML BAG IVPB (23:42)
[2023-09-07 23:56] LABS: Add Urine Microscopic? YES
[2023-09-08] VITALS (32 sets, daily range): BP systolic 116–174; BP diastolic 73–104; PULSE 77–108; RESP 13–26; TEMP 36.1–36.8; O2SAT 86–100
[2023-09-08] LABS: Influenza A QL RT-PCR Negative (Negative); Influenza B QL RT-PCR Negative (Negative); RSV RNA, RT-PCR Negative (Negative); SARS-CoV-2 RNA PCR Negative (Negative)
--- NOTE | 2023-09-08 00:21 | ED.GENADULT ---
HPI - General Adult General Chief complaint: Dizziness Stated complaint: dizzy/faint/palpitations Time Seen by Provider: 09/07/23 22:25 History of Present Illness HPI narrative: patient is a 53-year-old female who presents emergency department with chief complaint of lightheadedness and nausea. Patient states that she has had some episodes of chest discomfort and shortness of breath and keeps having feeling as though she has a warmness that starts in her head and comes down through her body. Patient reports that she has noticed that her blood pressure has been running on the higher side reports that she has also had bouts of nausea with this. Patient states she was seen in the emergency department on 09/02/2023 and was discharged home at that time. The patient reports that her symptoms have not been improving Related Data Home Medications Medication Instructions Recorded Confirmed alprazolam 0.25 mg tablet 11/23/20 amlodipine 5 mg tablet 11/23/20 cetirizine 10 mg tablet mg 11/23/20 clonidine HCl 0.1 mg tablet 11/23/20 losartan 100 mg tablet 11/23/20 metformin 500 mg tablet mg 11/23/20 pantoprazole 40 mg tablet,delayed PO 11/23/20 release spironolactone 25 mg tablet 11/23/20 zolpidem 10 mg tablet 11/23/20 11/23/20 ferrous sulfate 02/09/21 vitamin E 02/09/21 Allergies Allergy/AdvReac Type Severity Reaction Status Date / Time adhesive Allergy Mild Unknown Verified 11/10/22 16:07 latex Allergy Mild Unknown Verified 11/10/22 16:07 codeine Allergy Unknown Unknown Verified 11/10/22 16:07 menaquinone-7 (vitamin K2) Allergy Unknown Unknown Verified 11/10/22 16:07 [vitamin K2] morphine AdvReac Unknown Nausea Verified 11/10/22 16:07 Review of Systems Review of Systems: A 10 system review of systems was completed on the patient and is negative except for what is stated in the HPI. Nursing and ancillary documentation was reviewed. [facility] Past Medical History Medical History Anxiety Diabetes mellitus Gastroesophageal reflux disease Hypertension IgA nephropathy Kidney stone Rheumatoid arthritis Surgical History Surgical History History of appendectomy History of cholecystectomy History of hysterectomy Family History Family History Mother No pertinent past medical history Father Diabetes mellitus Family history of cardiovascular disease Mother Family history of emphysema Social History Social History Smoking status: Never smoker Substance use: never Living arrangements: with family Gender identity (if verbalized by the patient): Female Sexual Orientation (if Verbalized by the Patient): Straight or Heterosexual Spiritual care concerns: No Exam Narrative: GENERAL: Well-appearing, well-nourished, and in no acute distress. HEAD: Normocephalic, atraumatic. EYES: PERRLA and EOMI. ENT: Nares clear, no rhinorrhea or epistaxis. Mucous membranes moist. NECK: Supple. CHEST: Clear to auscultation. No respiratory distress. HEART: Regular rate and rhythm. No murmur heard. Normal peripheral pulses. ABDOMEN: Soft, nontender, nondistended, normal active bowel sounds. EXTREMITIES: Normal range of motion. No edema. SKIN: Warm, dry, no rash. NEURO: No focal deficits. Alert and oriented x3. PSYCH: Normal mood and affect. Course Vital Signs Vital signs: Vital Signs Temperature 36.4 C 09/07/23 21:17 Pulse Rate 101 H 09/07/23 21:17 Respiratory Rate 16 09/07/23 21:17 Blood Pressure 175/89 H 09/07/23 21:17 Pulse Oximetry 100 09/07/23 21:17 Oxygen Delivery Room Air 09/07/23 21:17 Temperature 36.4 C 09/07/23 21:17 Pulse Rate 101 H 09/07/23 21:17 Respiratory Rate 16 09/07/23 21:17 Blood Pressur
--- NOTE | 2023-09-08 01:01 | PM.IMHP ---
H&P: HPI History of Present Illness Date/Time: 09/08/23 01:01 Chief Complaint: dizziness Narrative: This is a 53-year-old female with past medical history significant for hypertension, diabetes, GERD, IgA nephropathy, rheumatoid arthritis. Patient presents for the 2nd time to the emergency room with complaints of dizziness and near-syncope had a stroke workup which was negative and patient was sent home however returns today with no improvement, patient complains of palpitations, near-syncope, dizziness, denies any nausea vomiting has had diarrhea, denies any fevers rigors or chills. Here preliminary workup was significant for patient positive for orthostatics. patient tested negative for influenza type A influenza type B RSV and COVID Patient is been admitted for further evaluation management and treatment. EXAMINATION:? XR chest 2V Exam Date/Time:? 09/07/2023 21:39 CDT HISTORY: palpitations, weakness x 1 week ? Comparison:? 09/02/2023. RESULT: Lines, tubes, and devices:? None. Lungs and pleura:? Clear. Cardiomediastinal silhouette:? Stable. Other:? No acute osseous or upper abdominal finding. ? IMPRESSION: No acute cardiopulmonary process. EXAMINATION: CTA brain carotid DATE: 09/07/2023 23:10 INDICATION: paresthesias, dizziness TECHNIQUE: Computed tomographic angiography (CTA) of the head was performed without and with 100 mL Omnipaque-350 intravenous contrast. CTA of the neck was performed with intravenous contrast. Automated exposure control and iterative reconstruction technique were employed. The dose-length product was 1573.15 mGy-cm. Maximum intensity projection and volume rendered 3D-reconstructions were created by the technologist on a separate workstation. COMPARISON: 11/23/2020. FINDINGS: CT BRAIN: No acute large vessel infarct, intracranial hemorrhage, mass, or hydrocephalus. CTA HEAD: No large vessel occlusion, aneurysm, high flow vascular malformation, nidus or extravasation. CTA NECK: Aortic arch and proximal great vessels: Atherosclerotic calcifications at the visualized aortic arch and proximal great vessels. Right common carotid, carotid bifurcation, and internal carotid artery: No significant plaque.There is 0% stenosis of the proximal right internal carotid artery relative to normal distal artery lumen diameter (NASCET criteria).? Left common carotid, carotid bifurcation, and internal carotid artery: Mild calcified plaque in the carotid bulb.There is 0% stenosis of the proximal left internal carotid artery relative to normal distal artery lumen diameter (NASCET criteria). Vertebral arteries: No significant plaque or stenosis. Other findings: Degenerative change in the cervical spine. Dental implants. IMPRESSION: No acute intracranial process. No large vessel intracranial occlusion, high-grade intracranial stenosis, or aneurysm. No carotid or vertebral artery occlusion, dissection, or significant stenosis. Review of Systems Review of Systems: Dizziness, near-syncope, diarrhea Constitutional: Constitutional: Denies chills, Denies fatigue, Denies fever(s), Denies malaise and Denies weakness Eyes: Eyes: Denies change in vision ENT: Denies dysphagia, Reports vertigo, Reports dizziness, Denies nasal congestion, Denies nasal discharge and Denies odynophagia Cardiovascular: Cardiovascular: Denies chest pain, Reports lightheadedness, Denies radiating jaw, neck or arm pain and Reports palpitations Respiratory: Respiratory: Denies chest congestion, Denies cough and Denies dyspnea Gastrointestinal: Gastrointestinal: Denies abdominal pain, Denies dyspepsia, Denies heartburn, Reports diarrhea, Denies nausea and Denies vomiting Genitourinary: Genitourinary: Denies dysuria Musculoskeletal: Musculoskeletal: Denies arthralgias Integumentary/Breasts: Skin/Breast: Denies rash Neurologic: Denies focal weakness and Denies Sensory deficit (Neuro) Psychiatric: Psychiatric:
[2023-09-08 01:20] LABS: Troponin I < 0.012 ng/mL (0.000-0.034)
[2023-09-08] MEDS: HYDROmorphone HCL INJ (*CRX) 1 MG/ML SYR IV PUSH (03:40)
[2023-09-08] MEDS: ONDANSETRON INJ 4 MG/2 ML VIAL IV PUSH ×4 (03:41→16:55)
[2023-09-08] MEDS: SODIUM CHLORIDE 0.9% IV 1,000 ML 999 ML IV CONT (03:42)
[2023-09-08] MEDS: ZOLPIDEM TARTRATE (*CRX) 5 MG TABLET 10 MG PO ×2 (04:00→20:50)
[2023-09-08] MEDS: LOSARTAN POTASSIUM 100 MG TABLET PO ×2 (04:06→20:49)
[2023-09-08 04:23] LABS: Troponin I < 0.012 ng/mL (0.000-0.034)
[2023-09-08] MEDS: cloNIDine HCL 0.05 MG TABLET PO ×2 (04:36→20:49)
[2023-09-08] MEDS: LORATADINE 10 MG TABLET PO ×2 (05:00→20:49)
[2023-09-08 08:27] LABS: Hematocrit 36.7 % (37.0-47.0); Hemoglobin 11.9 g/dL (12.0-15.0); Mean Corpuscular HGB Conc 32.4 g/dl (32-36); Mean Corpuscular Hemoglobin 28.3 pg (26-34); Mean Corpuscular Volume 87.2 fl (80-100); Mean Platelet Volume 11.3 fl (7.4-10.4); Platelet Count Result 265 k/mm3 (150-375); Red Blood Count 4.21 M/mm3 (4.2-5.4); Red Cell Distribution Width 12.7 % (11.5-14.5); White Blood Count 5.9 K/mm3 (4.5-10.0)
[2023-09-08 08:42] LABS: Alanine Aminotransferase 24 U/L (6-35); Albumin Level 4.1 g/dL (3.5-5.1); Alkaline Phosphatase 83 U/L (38-126); Anion Gap 7 mmol/L (8-16); Aspartate Amino Transferase 30 U/L (14-36); Bilirubin,Total 0.4 mg/dL (0.2-1.3); Blood Urea Nitrogen 12 mg/dL (7-17); Calcium 8.8 mg/dL (8.4-10.2); Carbon Dioxide 26 mmol/L (22-30); Chloride 102 mmol/L (98-107); Cholesterol 189 mg/dL (0-200); Estimated CRCL calculation 69 ml/min; Estimated Glomerular Filt Rate > 60; Glucose 170 mg/dL (65-110); HDL Direct 36 mg/dL; Potassium 3.6 mmol/L (3.4-5.0); Sodium 135 mmol/L (137-145); Triglycerides 294 mg/dL (<150)
[2023-09-08 08:46] LABS: Hemoglobin A1C 6.9 % (<5.7)
[2023-09-08 08:53] LABS: LDL Cholesterol Direct 115 mg/dL
[2023-09-08] MEDS: METOPROLOL SUCCINATE EXT REL 50 MG TABCR PO (09:16)
[2023-09-08] MEDS: SPIRONOLACTONE 25 MG TABLET PO ×2 (09:16→16:56)
[2023-09-08] MEDS: FERROUS SULFATE 325 MG TABLET DR PO ×3 (09:16→16:55)
[2023-09-08] MEDS: ASPIRIN 81 MG ENTERIC TABLET PO (09:16)
[2023-09-08] MEDS: EMPAGLIFLOZIN 10 MG TABLET PO (09:16)
--- NOTE | 2023-09-08 09:17 | ECG_ITS ---
Measurements Intervals [place] Rate: 96 P: 25 VA: 180 QRS: 24 QRSD: 98 T: 44 QT: 373 QTc: 473 Interpretive Statements SINUS RHYTHM CONSIDER INFERIOR INFARCT, AGE INDETERMINATE ABNORMAL ECG COMPARED TO ECG 09/07/2023 21:27:10 NO SIGNIFICANT CHANGES Electronically Signed On 09-08-2023 9:22:01 CDT by Idris Lala D.O.
--- NOTE | 2023-09-08 12:04 | P.PNIM_ITS ---
Progress Note: A&P Assessment and Plan (1) Hypertension: Code(s): I10 - Essential (primary) hypertension Status: Acute (2) Dizziness: Code(s): R42 - Dizziness and giddiness Status: Acute (3) Near syncope: Code(s): R55 - Syncope and collapse Status: Acute (4) Rheumatoid arthritis: Code(s): M06.9 - Rheumatoid arthritis, unspecified Status: Acute Plan Syncope/Dizziness * CTA/MRI with no acute findings * orthostatics daily positive in the ED * compression stockings * HTN on admission * Echo pending HTN * hypertensive POA * resumed home medications * monitor per protocol * will increase BB if persistent Rheumatoid arthritis * is suppose to follow with activities concierge * PCP provides steroid shots p.r.n. O/P * Steroid IVP once * monitor BS Diabetes * Accu-Cheks a.c. HS * sliding scale insulin * hold oral diabetic medications * Hemoglobin A1c 6.9 * lipid panel pending * Diabetic diet * Watch for hypoglycemia/hypoglycemic protocol ordered Code status: Full code per patient DVT prophylaxis: Lovenox Stress ulcer prophylaxis: Protonix 40 daily PT/OT notes: Pt/OT pending Disposition: Patient continues in his medical-surgical unit for continued dizziness and near-syncope echocardiogram pending patient with severe joint pain secondary to her RA. Patient hypertensive will adjust medications as needed everything comes back negative no events overnight patient should be able to discharge home tomorrow. Time Spent With Patient Time with patient: 15 - 25 minutes Subjective Date/time seen: 09/08/23 12:04 Interval history: (Medical Record) Chief Complaint: ?dizziness Narrative: ?This is a 53-year-old female with past medical history significant for hypertension, diabetes, GERD, IgA nephropathy, rheumatoid arthritis.? Patient presents for the 2nd time to the emergency room with complaints of dizziness and near-syncope had a stroke workup which was negative and patient was sent home however returns today with no improvement, patient complains of palpitations, near-syncope, dizziness, denies any nausea vomiting has had diarrhea, denies any fevers rigors or chills.? Here preliminary workup was significant for patient positive for orthostatics.? patient tested negative for influenza type A influenza type B RSV and COVID Patient is been admitted for further evaluation management and treatment. 09/07: Patient still reporting dizziness and near syncope symptoms. CT/MRI with no acute findings. Patient HTN and tachycardia will resume her BB and increase if needed. Patient tearful due to pain from RA will give a dose of steroid to see if it reliefs some pain reports the pain is worst in her hands. She is suppose to follow-up with a forms designer O/P. Echo pending and orthostatics daily. Review of Systems Review of Systems: All systems reviewed & are unremarkable except as noted in HPI and below Exam Narrative: Physical Exam: * GENERAL: Alert and oriented x 3. Tearful. Well-nourished. * EYES: EOMI. No scleral icterus. PERRLA. * HEENT: Moist mucous membranes. No cervical lymphadenopathy. * LUNGS: Clear to auscultation bilaterally. No accessory muscle use. * CARDIOVASCULAR: Regular rate and rhythm. No murmur. No JVD. S1-S2 * ABDOMEN: Soft, mild tenderness and non-distended. No palpable masses. * EXTREMITIES: No edema. Non-tender * SKIN: No rashes or lesions. Skin warm, dry. *
--- NOTE | 2023-09-08 12:04 | PM.IMPN ---
Progress Note: A&P Assessment and Plan (1) Hypertension: Code(s): I10 - Essential (primary) hypertension Status: Acute (2) Dizziness: Code(s): R42 - Dizziness and giddiness Status: Acute (3) Near syncope: Code(s): R55 - Syncope and collapse Status: Acute (4) Rheumatoid arthritis: Code(s): M06.9 - Rheumatoid arthritis, unspecified Status: Acute Plan Syncope/Dizziness CTA/MRI with no acute findings orthostatics daily positive in the ED compression stockings HTN on admission Echo pending HTN hypertensive POA resumed home medications monitor per protocol will increase BB if persistent Rheumatoid arthritis 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 O/P Steroid IVP once monitor BS Diabetes Accu-Cheks a.c. HS sliding scale insulin hold oral diabetic medications Hemoglobin A1c 6.9 lipid panel pending Diabetic diet Watch for hypoglycemia/hypoglycemic protocol ordered Code status: Full code per patient DVT prophylaxis: Lovenox Stress ulcer prophylaxis: Protonix 40 daily PT/OT notes: Pt/OT pending Disposition: Patient continues in his medical-surgical unit for continued dizziness and near-syncope echocardiogram pending patient with severe joint pain secondary to her RA. Patient hypertensive will adjust medications as needed everything comes back negative no events overnight patient should be able to discharge home tomorrow. Time Spent With Patient Time with patient: 15 - 25 minutes Subjective Date/time seen: 09/08/23 12:04 Interval history: (Medical Record) Chief Complaint: ?dizziness Narrative: ?This is a 53-year-old female with past medical history significant for hypertension, diabetes, GERD, IgA nephropathy, rheumatoid arthritis.? Patient presents for the 2nd time to the emergency room with complaints of dizziness and near-syncope had a stroke workup which was negative and patient was sent home however returns today with no improvement, patient complains of palpitations, near-syncope, dizziness, denies any nausea vomiting has had diarrhea, denies any fevers rigors or chills.? Here preliminary workup was significant for patient positive for orthostatics.? patient tested negative for influenza type A influenza type B RSV and COVID Patient is been admitted for further evaluation management and treatment. 09/07: Patient still reporting dizziness and near syncope symptoms. CT/MRI with no acute findings. Patient HTN and tachycardia will resume her BB and increase if needed. Patient tearful due to pain from RA will give a dose of steroid to see if it reliefs some pain reports the pain is worst in her hands. 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 Echo pending and orthostatics daily. Review of Systems Review of Systems: All systems reviewed & are unremarkable except as noted in HPI and below Exam Narrative: Physical Exam: GENERAL: Alert and oriented x 3. Tearful. Well-nourished. EYES: EOMI. No scleral icterus. PERRLA. HEENT: Moist mucous membranes. No cervical lymphadenopathy. LUNGS: Clear to auscultation bilaterally. No accessory muscle use. CARDIOVASCULAR: Regular rate and rhythm. No murmur. No JVD. S1-S2 ABDOMEN: Soft, mild tenderness and non-distended. No palpable masses. EXTREMITIES: No edema. Non-tender SKIN: No rashes or lesions. Skin warm, dry. NEUROLOGIC: No focal neurological deficits. CN II-XII grossly intact PSYCHIATRIC: Appropriate mood and affect. Good judgement and insight. No visual or auditory hallucinations. No suicidal or homicidal ideation. Objective Data Vital Signs Vital Signs: Vital Signs - 24 hr 09/07/23 21:17 09/08/23 02:02 09/07/23 22:17 Temperature 97.6 F Pulse Rate 101 H 108 H 94 Respiratory Rate 16 18 15 Blood Pressure 175/89 H Pulse Oximetry 100 100 Oxygen Delivery Room Air 09/07/23 22:20 09/07/23
[2023-09-08] MEDS: methylPREDNISolone SOD SUCC 40 MG VIAL IV PUSH (12:45)
[2023-09-08 13:00] LABS: Glucose Point of Care 234 mg/dl (65-105)
[2023-09-08 15:29] LABS: Glucose Point of Care 253 mg/dl (65-105)
[2023-09-08 16:12] LABS: Glucose Point of Care 236 mg/dl (65-105)
[2023-09-08] MEDS: INSULIN ASPART (*BKC) 100 UNITS/ML SUB-Q ×2 (16:55→20:50)
[2023-09-08] MEDS: MORPHINE SULFATE (*CRX) 2 MG/ML INJ 0.5 MG IV PUSH (18:11)
[2023-09-08] MEDS: ALPRAZolam (*CRX) 0.25 MG TABLET PO (20:49)
[2023-09-08] MEDS: CHOLECALCIFEROL 1,000 UNITS TABLET 5000 UNITS PO (20:49)
[2023-09-08] MEDS: PANTOPRAZOLE 40 MG TABLET PO (20:49)
[2023-09-08] MEDS: VITAMIN E 1,000 UNIT CAPSULE 1000 UNIT PO (20:50)
[2023-09-08 20:58] LABS: Appearance Urine Clear (Clear); Bacteria Urine None Seen /hpf; Bilirubin Urine Negative (Negative); Blood Urine 1+ (Negative); Color Urine Yellow (Yellow); Glucose Urine UA 3+ mg/dL (Negative); Ketones Urine Negative (Negative); Leukocyte Esterase Ur Negative LEU/UL (Negative); Nitrate Urine Negative (Negative); Non Pathogenic Casts 0-2; Protein Urine 2+ mg/dL (Negative); Specific Grav Ur 1.022 (1.001-1.035); Squamous Epithelial Cell Urine None Seen /hpf (Few); Urobilinogen Urine 0.2 mg/dL (<2.0); WBC Urine 0-5 /hpf (0-3); pH Urine 6.5 (5.0-9.0)
[2023-09-08 20:59] LABS: Add Urine Microscopic? YES
[2023-09-08 22:10] LABS: Glucose Point of Care 339 mg/dl (65-105)
[2023-09-09] VITALS (12 sets, daily range): BP systolic 120–167; BP diastolic 74–89; PULSE 70–86; RESP 14–20; TEMP 35.9–36.4; O2SAT 96–100
--- NOTE | 2023-09-09 06:00 | ECHO_ITS ---
Patient Info Name: Carole Escobar Age: 53 years : 1970 Gender: Female Ht: 65 in Wt: 200 lbs BSA: 2.07 m2 HR: 74 bpm BP: 120 / 74 mmHg Heart Rhythm: Sinus Rhythm Technical Quality: Fair Exam Date: 09/09/2023 11:20 AM Exam Location: Echo Lab Patient Status: Outpatient Admit Date: 09/08/2023 Staff Ordering Physician: Yoni Kaur MD Mounter Saxophones: Attending Provider: Su Salinas MD Referring Physician: Vincent TOMLINSON; Exam Type: CA echo doppler color flow Study Info Indications R55 - Syncope and collapse Complete two-dimensional, color flow and Doppler transthoracic echocardiogram is performed. Summary 1. Complete two-dimensional, color flow and Doppler transthoracic echocardiogram is performed. 2. Left ventricular chamber dimension is mildly enlarged. 3. Left ventricular systolic function is normal, estimated at 60-65%. 4. There is no increased left ventricular wall thickness. 5. The left ventricular diastolic function is normal. 6. Left atrial chamber dimension is moderately enlarged. 7. There is no aortic valve stenosis. 8. There is mild mitral valve regurgitation. 9. There is trace tricuspid valve regurgitation. 10. No pulmonary hypertension, estimated pulmonary arterial systolic pressure is 22 mmHg. Left Ventricle Left ventricular chamber dimension is mildly enlarged. Left ventricular systolic function is normal, estimated at 60-65%. There is no increased left ventricular wall thickness. The left ventricular diastolic function is normal. Right Ventricle Right ventricular chamber dimension is normal. Right ventricular systolic function is normal. Left Atria Left atrial chamber dimension is moderately enlarged. Right Atria Right atrial chamber dimension is mildly enlarged. Aortic Valve The aortic valve is not well visualized. There is no aortic valve stenosis. There is no aortic valve regurgitation. Pulmonic Valve The pulmonic valve is not well visualized. Mitral Valve The mitral valve has normal leaflets. There is mild mitral valve regurgitation. Tricuspid Valve The tricuspid valve leaflets are normal. There is trace tricuspid valve regurgitation. No pulmonary hypertension, estimated pulmonary arterial systolic pressure is 22 mmHg. Pericardium/Pleural The pericardium appears normal. There is no pericardial effusion. Inferior Vena Cava Normal inferior vena cava with >50% collapse upon inspiration consistent with normal right atrial pressure, 5 mmHg. Aorta The aortic root size at the sinus of Valsalva is normal. There is mild aortic atherosclerosis. Left Ventricular Outflow Tract Name Value Normal LVOT 2D LVOT Diameter 2.0 cm LVOT Doppler LVOT Peak Gradient 3 mmHg LVOT Mean Gradient 2 mmHg LVOT VTI 19 cm LVOT VTI/AV VTI Ratio 0.6 LVOT Stroke Volume 62 ml LVOT CO 4.9 l/min LVOT CI 2.4 l/min/m2 Pulmonic Valve Name Va
[2023-09-09 07:35] LABS: Glucose Point of Care 142 mg/dl (65-105)
[2023-09-09] MEDS: MORPHINE SULFATE (*CRX) 2 MG/ML INJ 0.5 MG IV PUSH ×2 (08:15→19:19)
[2023-09-09] MEDS: METOPROLOL SUCCINATE EXT REL 50 MG TABCR PO (08:16)
[2023-09-09] MEDS: ASPIRIN 81 MG ENTERIC TABLET PO (08:17)
[2023-09-09] MEDS: SPIRONOLACTONE 25 MG TABLET PO ×2 (08:17→16:52)
[2023-09-09] MEDS: FERROUS SULFATE 325 MG TABLET DR PO ×3 (08:17→16:52)
[2023-09-09] MEDS: EMPAGLIFLOZIN 10 MG TABLET PO (08:17)
[2023-09-09] MEDS: ACETAMINOPHEN 325 MG TABLET 650 MG PO ×2 (10:20→20:50)
[2023-09-09 11:13] LABS: Glucose Point of Care 164 mg/dl (65-105)
[2023-09-09] MEDS: ONDANSETRON INJ 4 MG/2 ML VIAL IV PUSH (11:22)
--- NOTE | 2023-09-09 12:34 | PM.IMPN ---
Progress Note: A&P Assessment and Plan (1) Dizziness: Code(s): R42 - Dizziness and giddiness Status: Acute Assessment and Plan: CTA/MRI with no acute findings orthostatics positive in the ED; 09/08 orthostatics negative compression stockings HTN on admission Echo pending (2) Hypertension: Code(s): I10 - Essential (primary) hypertension Status: Acute Assessment and Plan: resumed home medications monitor per protocol will increase BB if persistent Check catecholamines and metanephrines. (3) Rheumatoid arthritis: Code(s): M06.9 - Rheumatoid arthritis, unspecified Status: Acute Assessment and Plan: is suppose to follow with event manager PCP provides steroid shots p.r.n. Steroid IVP once monitor blood sugar (4) Diabetes mellitus: Code(s): E11.9 - Type 2 diabetes mellitus without complications Status: Acute Assessment and Plan: Accu-Cheks a.c. HS sliding scale insulin hold oral diabetic medications Hemoglobin A1c 6.9 lipid panel showing elevated triglycerides. Diabetic diet Hypoglycemia/hypoglycemic protocol Subjective Date/time seen: 09/09/23 12:34 Interval history: Patient states that she is still having ongoing lightheadedness. Her neurological workup has remained negative. There has been no finding suggestive post wide patient is dizzy. She does states that she is in menopause and she has had increased flushing and sweating. she also states that she has had uncontrollable blood pressure issues past couple months is currently on 4 blood pressure medications. She started on Farxiga approximately 6 months ago when her symptoms began and states that she did get off of this medication her symptoms improved although now she is back on it she is having the symptoms again. Will order cortisol test in the a.m. as well as repeat labs. Exam Narrative: GENERAL: Comfortable, no acute distress HENMT: moist mucous membranes EYES: EOM intact b/l NECK: no lymphadenopathy RESPIRATORY: clear to auscultation CARDIO: RRR GI: soft, nontender, bowel sounds present SKIN: no rashes EXTREMITIES: no edema, redness or tenderness Objective Data Vital Signs Vital Signs: Vital Signs - 24 hr 09/08/23 14:00 09/08/23 15:30 09/08/23 16:00 Temperature 97.1 F L 98.3 F Pulse Rate 77 95 86 Respiratory Rate 24 H 16 Blood Pressure 116/73 142/86 H Pulse Oximetry 97 86 L Oxygen Delivery 09/08/23 20:40 09/08/23 21:42 09/08/23 20:02 Temperature 97.9 F Pulse Rate 92 94 Respiratory Rate 16 Blood Pressure 151/83 H Pulse Oximetry 98 Oxygen Delivery Room Air 09/09/23 00:02 09/09/23 04:02 09/09/23 05:51 Temperature 97.2 F L Pulse Rate 85 82 75 Respiratory Rate 14 Blood Pressure 120/74 Pulse Oximetry 100 Oxygen Delivery 09/09/23 08:16 09/09/23 08:00 09/09/23 08:00 Temperature 96.6 F L Pulse Rate 86 70 83 Respiratory Rate 18 Blood Pressure 167/88 H Pulse Oximetry 98 Oxygen Delivery 09/09/23 10:45 09/09/23 10:46 09/09/23 12:00 Temperature 96.9 F L 96.6 F L Pulse Rate 71 81 86 Respiratory Rate 18 17 Blood Pressure 150/85 H 159/88 H Pulse Oximetry 96 98 Oxygen Delivery Intake/Output Intake/Output: Intake & Output 09/06/23 09/07/23 09/08/23 09/09/23 23:59 23:59 23:59 23:59 Intake Total 3130 600 Output Total 300 Balance 3130 300 Meds/Results Medications: Active Medications Generic Name Dose Route Start Last Admin Trade Name Freq PRN Reason Stop Dose Admin Acetaminophen 650 mg 09/08/23 07:35 09/09/23 10:20 Acetaminophen 325 Mg Tablet PO 650 mg Q4H PRN Administration Mild Pain (1-3) or Fever Alprazolam 0.25 mg 09/08/23 21:00 09/08/23 20:49 Alprazolam (*Crx) 0.25 Mg Tablet PO 0.25 mg HS LOUANN Administration Aspirin 81 mg 09/08/23 09:00 09/09/23 08:17 Aspirin 81 Mg Enteric Table
[2023-09-09 16:21] LABS: Glucose Point of Care 205 mg/dl (65-105)
[2023-09-09] MEDS: INSULIN ASPART (*BKC) 100 UNITS/ML SUB-Q (16:51)
[2023-09-09] MEDS: BELLADONNA ALK/PHENOB ELIX 10 ML, MAG HYDROX/ALUMINUM HYD/SIMETH 30 ML, LIDOCAINE HCL 2... PO (18:25)
[2023-09-09] MEDS: LORATADINE 10 MG TABLET PO (20:51)
[2023-09-09] MEDS: VITAMIN E 1,000 UNIT CAPSULE 1000 UNIT PO (20:51)
[2023-09-09] MEDS: ALPRAZolam (*CRX) 0.25 MG TABLET PO (20:52)
[2023-09-09] MEDS: ZOLPIDEM TARTRATE (*CRX) 5 MG TABLET 10 MG PO (20:52)
[2023-09-09] MEDS: LOSARTAN POTASSIUM 100 MG TABLET PO (20:52)
[2023-09-09] MEDS: CHOLECALCIFEROL 1,000 UNITS TABLET 5000 UNITS PO (20:52)
[2023-09-09] MEDS: PANTOPRAZOLE 40 MG TABLET PO (20:52)
[2023-09-09 20:55] LABS: Glucose Point of Care 188 mg/dl (65-105)
[2023-09-10] VITALS (8 sets, daily range): BP systolic 133–154; BP diastolic 80–92; PULSE 61–96; RESP 14–20; TEMP 36.1–36.7; O2SAT 96–99
[2023-09-10] MEDS: ONDANSETRON INJ 4 MG/2 ML VIAL IV PUSH ×2 (02:10→08:14)
[2023-09-10] MEDS: ACETAMINOPHEN 325 MG TABLET 650 MG PO ×2 (05:23→12:50)
[2023-09-10 07:21] LABS: Basophils Absolute Auto 0.1 K/mm3 (0.0-0.1); Basophils Percent Auto 1.5 % (0.2-1.2); Eosinophils Absolute Auto 0.3 K/mm3 (0-0.3); Eosinophils Percent Auto 3.6 % (0-4.4); Hematocrit 38.8 % (37.0-47.0); Hemoglobin 12.4 g/dL (12.0-15.0); Immature Granulocyte Absolute 0.07 K/mm3 (0.00-0.031); Immature Granulocyte Percent A 0.9 % (0-0.5); Lymphocytes Absolute Auto 1.81 K/mm3 (0.9-3.2); Lymphocytes Percent Auto 23.1 % (18.3-44.2); Mean Corpuscular Hemoglobin 28.4 pg (26-34); Mean Corpuscular Volume 88.8 fl (80-100); Mean Platelet Volume 11.4 fl (7.4-10.4); Monocytes Absolute Auto 0.5 K/mm3 (0.1-0.6); Monocytes Percent Auto 6.9 % (2.6-8.5); Platelet Count Result 292 k/mm3 (150-375); Red Blood Count 4.37 M/mm3 (4.2-5.4); Red Cell Distribution Width 12.6 % (11.5-14.5); White Blood Count 7.8 K/mm3 (4.5-10.0)
[2023-09-10 07:25] LABS: Glucose Point of Care 133 mg/dl (65-105)
[2023-09-10 07:33] LABS: Alanine Aminotransferase 30 U/L (6-35); Albumin Level 4.4 g/dL (3.5-5.1); Alkaline Phosphatase 69 U/L (38-126); Anion Gap 5 mmol/L (8-16); Aspartate Amino Transferase 38 U/L (14-36); Bilirubin,Total 0.6 mg/dL (0.2-1.3); Blood Urea Nitrogen 18 mg/dL (7-17); Calcium 9.7 mg/dL (8.4-10.2); Carbon Dioxide 28 mmol/L (22-30); Chloride 103 mmol/L (98-107); Estimated CRCL calculation 57 ml/min; Estimated Glomerular Filt Rate 52; Glucose 139 mg/dL (65-110); Magnesium 2.1 mg/dL (1.6-2.3); Potassium 4.1 mmol/L (3.4-5.0); Sodium 136 mmol/L (137-145)
[2023-09-10] MEDS: MORPHINE SULFATE (*CRX) 2 MG/ML INJ 0.5 MG IV PUSH (08:14)
[2023-09-10] MEDS: METOPROLOL SUCCINATE EXT REL 50 MG TABCR PO (09:44)
[2023-09-10] MEDS: SPIRONOLACTONE 25 MG TABLET PO ×2 (09:44→17:03)
[2023-09-10] MEDS: PANTOPRAZOLE 40 MG TABLET PO (09:44)
[2023-09-10] MEDS: FERROUS SULFATE 325 MG TABLET DR PO ×3 (09:44→17:03)
[2023-09-10] MEDS: EMPAGLIFLOZIN 10 MG TABLET PO (09:44)
[2023-09-10 11:31] LABS: Glucose Point of Care 149 mg/dl (65-105)
[2023-09-10 11:50] LABS: CRP < 0.5 mg/dL (<1.0)
[2023-09-10 11:55] LABS: Ethanol < 10 mg/dL (<10)
[2023-09-10 12:16] LABS: Erythrocyte Sedimentation Rate 17 mm/hr (0-20)
--- NOTE | 2023-09-10 16:01 | PM.DS ---
DS: Admitting Diagnosis Discharge Date 09/10/23 Admitting Diagnosis Dizziness DS: Discharge Diagnosis Discharge Diagnosis (1) Dizziness: Code(s): R42 - Dizziness and giddiness Status: Acute Assessment and Plan: CTA/MRI with no acute findings orthostatics positive in the ED; 09/08 orthostatics negative compression stockings HTN on admission Echo normal (2) Hypertension: Code(s): I10 - Essential (primary) hypertension Status: Acute Assessment and Plan: resumed home medications monitor per protocol will increase BB if persistent Catecholamines and metanephrines ordered and follow up with PCP (3) Rheumatoid arthritis: Code(s): M06.9 - Rheumatoid arthritis, unspecified Status: Acute Assessment and Plan: 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 Steroid IVP once monitor blood sugar (4) Diabetes mellitus: Code(s): E11.9 - Type 2 diabetes mellitus without complications Status: Acute Assessment and Plan: Accu-Cheks a.c. HS sliding scale insulin hold oral diabetic medications Hemoglobin A1c 6.9 lipid panel showing elevated triglycerides. Diabetic diet Hypoglycemia/hypoglycemic protocol DS: Summary Hospital Course Hospital Course: This is a 53-year-old female with past medical history of hypertension, diabetes, GERD, IgA nephropathy, rheumatoid arthritis and psoriatic arthritis of presented to the ED due to dizziness and near syncope. Patient had a stroke workup which was negative. She did have some positive orthostatics and was given some IV fluids. Patient's orthostatic pressures improved thereafter. Patient's symptoms persisted. Patient was having headaches, hot flashes and facial flushing associated with her dizziness. Patient was worked up for pheochromocytoma. Testing results should be follow-up with her primary care provider. Patient was also concerned about auto brewery syndrome. Alcohol level was tested on the patient and it was negative. Due to patient's different symptoms a CRP and ESR were also tested which were within normal limits. Patient did states that she is going through menopause which could be related to several of her symptoms. She is also experiencing blood pressure fluctuation. Her clonidine was put on hold and the fluctuation seem to improve with this. Advised that she monitor blood pressures at home. Patient had lot of anxiety surrounding her multiple medical problems and I recommended that she start on a daily anti anxiety medication. She was up for this. Start her on Wellbutrin to be followed up by her PCP. Her labs and vital signs are stable and she is medically cleared for discharge at this time. Time Spent with Patient Time attestation: Total time spent providing and/or coordinating discharge services: Exam Narrative: GENERAL: Comfortable, no acute distress HENMT: moist mucous membranes EYES: EOM intact b/l NECK: no lymphadenopathy RESPIRATORY: clear to auscultation CARDIO: RRR GI: soft, nontender, bowel sounds present SKIN: no rashes EXTREMITIES: no edema, redness or tenderness DS: Data Data Completed and Pending Labs on day of discharge: Labs from last 24 hours 09/10/23 09/10/23 09/10/23 11:28 07:22 06:53 WBC 7.8 RBC 4.37 Hgb 12.4 Hct 38.8 MCV 88.8 MCH 28.4 MCHC 32.0 RDW 12.6 Plt Count 292 MPV 11.4 H Immature Gran % (Auto) 0.9 H Neut % (Auto) 64.0 Lymph % (Auto) 23.1 Hanson % (Auto) 6.9 Eos % (Auto) 3.6 Baso % (Auto) 1.5 H Lymph # (Auto) 1.81 Hanson # (Auto) 0.5 Eos # (Auto) 0.3 Baso # (Auto) 0.1 Abs Immat Gran (auto) 0.07 H Absolute Neuts (auto) 5.0 Absolute Nucleated RBC 0.000 Nucleated RBC % 0.0 ESR Sodium 136 L Potassium 4.1 Chloride 103 Carbon Dioxide 28 Anion Gap 5 L BUN 18 H Creatinine 1.
[2023-09-10 16:32] LABS: Glucose Point of Care 137 mg/dl (65-105)
[2023-09-14 04:51] LABS: Metanephrine, Free 30 pg/mL (<=57); Normetanephrine, Free 73 pg/mL (<=148); Total, Free (MN + NMN) 103 pg/mL (<=205)
[2023-09-18 05:10] LABS: Metanephrine, Total Urine 325 mcg/24 h (224-832); Metanephrine, Urine 86 mcg/24 h (90-315); Normetanephrine, Urine 239 mcg/24 h (122-676)
== END 2023-09-10 17:10 | disposition home or self-care (01) ==
LOC: ANHED 09-08 01:11 → ANH3MEDSUR 09-08 02:04
PROVIDERS: Internal Medicine Critical Care Medicine; Nurse Practitioner Family; Physician Assistant; Admitting Provider Internal Medicine; Emergency Provider Emergency Medicine; PCP Family Medicine; Visit Provider Family Medicine
DX: R42 Dizziness and giddiness (principal); I10 Essential (primary) hypertension; R94.31 Abnormal electrocardiogram [ECG] [EKG]; F41.9 Anxiety disorder, unspecified; E11.9 Type 2 diabetes mellitus without complications; N02.B1 Recurrent and persistent immunoglobulin A nephropathy with glomerular lesion; I34.0 Nonrheumatic mitral (valve) insufficiency; K21.9 Gastro-esophageal reflux disease without esophagitis; M06.9 Rheumatoid arthritis, unspecified; L40.50 Arthropathic psoriasis, unspecified; Z20.822 Contact with and (suspected) exposure to COVID-19; Z79.84 Long term (current) use of oral hypoglycemic drugs; Z79.899 Other long term (current) drug therapy
CPT/HCPCS: 36415; 70496; 70498; 70553; 71046; 80053; 80061; 80307; 81001; 82384; 82948; 83036; 83690; 83735; 83835; 84443; 84484; 85025; 85027; 85610; 85652; 85730; 86140; 87637; 93005; 93306; 96361; 96365; 96374; 96375; 96376; 97161; 97165; 99285; A9270; A9577; G0378; J1170; J1815; J2270; J2405; J2920; J3475; J7030; Q9967

== ENCOUNTER 2024-02-20 15:52 | Inpatient (IN) | payer OTHER, SELFPAY ==
[2024-02-20] VITALS (14 sets, daily range): BP systolic 105–141; BP diastolic 72–85; PULSE 80–100; RESP 16–19; TEMP 36.2–37.1; O2SAT 100; BMI 36.4
--- NOTE | ~2024-02-20 | XR_ITS ---
XR chest 1V portable 02/23/2024 15:07 Indication: New onset of shortness of breath Procedure: AP portable chest Comparison: Comparison to multiple prior studies sequentially, with oldest reviewed study dated 11/10. Findings: Heart size normal. No focal air space disease, pulmonary edema, pleural effusion or suspect ed pneumothorax. Impression: 1: No acute cardiopulmonary disease. Reviewed, dictated and finalized at location B. Impression: 1: No acute cardiopulmonary disease.
--- NOTE | ~2024-02-20 | CT_ITS ---
EXAMINATION: CT abdomen pelvis wo con DATE: 02/21/2024 09:23 INDICATION: Abdominal distention. TECHNIQUE: Computed tomography (CT) of the abdomen and pelvis was performed without intravenous contr ast. Automated exposure control and iterative reconstruction technique were employed. The dose-length product was 1050.71 mGy-cm. COMPARISON: CT abdomen and pelvis 02/09/2021 FINDINGS: The visualized portions of the lung bases demonstrate mild atelectasis. No pleural effusion . The heart size is normal. No pericardial effusion. The liver, spleen, pancreas, and right adrenal g land are normal. There is a 10 mm mass in left adrenal gland without unchanged in size from 02/09/2021 , likely an adenoma. There are changes of cholecystectomy. There is a 2 mm stone in right kidney. The re is a 7 mm stone in left kidney. There is an 8.1 cm cyst of right ovary. There is diverticulosis of the colon without evidence of diverticulitis. There are changes of appendectomy. There are no pathol ogically enlarged lymph nodes. There is no free intraperitoneal fluid. There is moderate thoracic spo ndylosis and mild lumbar spondylosis. IMPRESSION: 1. 8.1 cm cyst in right ovary that measured 5.9 cm on 02/09/2021, probably benign. Pelvis ultrasound i s recommended. Reviewed, dictated and finalized at location A. IMPRESSION: 1. 8.1 cm cyst in right ovary that measured 5.9 cm on 02/09/2021, probably benig n. Pelvis ultrasound is recommended.
--- NOTE | ~2024-02-20 | XR_ITS ---
EXAMINATION: XR chest 1V portable DATE: 02/21/2024 05:32 INDICATION: Edema. TECHNIQUE: A single frontal view of the chest was obtained. COMPARISON: Chest 2 views 09/07/2023 FINDINGS: There is mild atelectasis in the lower lung zones. No pleural effusion or pneumothorax. The heart size is normal. IMPRESSION: 1. Mild atelectasis in the lower lung zones. Reviewed, dictated and finalized at location A.
[2024-02-20 16:34] LABS: Glucose Point of Care 397 mg/dl (65-105)
[2024-02-20] MEDS: SODIUM CHLORIDE 0.9% IV 1,000 ML 999 ML IV CONT ×2 (17:12→17:58)
[2024-02-20] MEDS: ONDANSETRON INJ 4 MG/2 ML VIAL IV PUSH ×2 (17:13→18:58)
[2024-02-20 17:20] LABS: Basophils Absolute Auto 0.1 K/mm3 (0.0-0.1); Basophils Percent Auto 1.1 % (0.2-1.2); Eosinophils Absolute Auto 0.3 K/mm3 (0-0.3); Eosinophils Percent Auto 4.2 % (0-4.4); Hematocrit 24.4 % (37.0-47.0); Hemoglobin 7.7 g/dL (12.0-15.0); Immature Granulocyte Absolute 0.12 K/mm3 (0.00-0.031); Immature Granulocyte Percent A 1.7 % (0-0.5); Lymphocytes Absolute Auto 1.07 K/mm3 (0.9-3.2); Mean Corpuscular HGB Conc 31.6 g/dl (32-36); Mean Corpuscular Hemoglobin 30.1 pg (26-34); Mean Corpuscular Volume 95.3 fl (80-100); Mean Platelet Volume 11.4 fl (7.4-10.4); Monocytes Absolute Auto 0.6 K/mm3 (0.1-0.6); Monocytes Percent Auto 7.7 % (2.6-8.5); Neutrophils Percent Auto 70.3 % (45.5-73.1); Platelet Count Result 287 k/mm3 (150-375); Red Blood Count 2.56 M/mm3 (4.2-5.4); Red Cell Distribution Width 17.9 % (11.5-14.5); White Blood Count 7.1 K/mm3 (4.5-10.0)
--- NOTE | 2024-02-20 17:23 | ED.GENADULT ---
HPI - General Adult General Chief complaint: Recheck/Abnormal Lab/Rx Stated complaint: low hgb, high blood sugar, chest pain Time Seen by Provider: 02/20/24 16:09 History of Present Illness HPI narrative: Patient is a 53-year-old female who presents ER with multiple complaints. Her main issue is fatigue does been progressing over last couple of weeks. She had outpatient labs that showed a low hemoglobin and it was recommended she come to the ER for evaluation. 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 She is not on a blood thinning medication. She reports she had a small amount of blood in her stool today but had a formed bowel movement prior to coming in that had no blood in it. She has not had any significant blood in her specimen over last 2 days. She denies fevers or chills or sweats. She has not had any syncope. She takes mesalamine and she also recently took a rectal steroid. She is diabetic and does not take short-acting insulin. Her insulin suddenly went up and made her feel weird as well. 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 Her GI doctor dislocated [facility]. Related Data Home Medications Medication Instructions Recorded Confirmed alprazolam 0.25 mg tablet 0.25 mg PO HS 11/23/20 09/08/23 cetirizine 10 mg tablet 10 mg PO HS 11/23/20 09/08/23 clonidine HCl 0.1 mg tablet 0.05 mg PO 11/23/20 09/08/23 losartan 100 mg tablet 100 mg PO HS 11/23/20 09/08/23 metformin 500 mg tablet 500 - 1,000 mg PO BID 11/23/20 09/08/23 pantoprazole 40 mg tablet,delayed 40 mg PO HS 11/23/20 09/08/23 release spironolactone 25 mg tablet 25 mg PO BID 11/23/20 09/08/23 zolpidem 10 mg tablet 10 mg PO HS 11/23/20 09/08/23 ferrous sulfate 65 mg PO TID 02/09/21 09/08/23 vitamin E 1,000 unit PO DAILY 02/09/21 09/08/23 Vitamin D3 5,000 unit PO HS 09/08/23 09/08/23 dapagliflozin propanediol 5 mg 5 mg PO DAILY 09/08/23 09/08/23 tablet (Farxiga) metoprolol succinate 50 mg 25 mg PO DAILY 09/08/23 09/08/23 tablet,extended release 24 hr Allergies Allergy/AdvReac Type Severity Reaction Status Date / Time adhesive Allergy Mild Unknown Verified 02/20/24 17:13 latex Allergy Mild Unknown Verified 02/20/24 17:13 codeine Allergy Unknown Unknown Verified 02/20/24 17:13 menaquinone-7 (vitamin K2) Allergy Unknown Unknown Verified 02/20/24 17:13 [vitamin K2] Review of Systems Review of Systems: All systems reviewed & are unremarkable except as noted in HPI and below Constitutional: Constitutional: Reports no additional constitutional complaints ENT: Reports system reviewed and no additional complaints, except as documented Cardiovascular: Cardiovascular: Reports no additional cardiovascular complaints Respiratory: Respiratory: Reports no additional respiratory complaints Gastrointestinal: Gastrointestinal: Reports no additional gastrointestinal complaints Musculoskeletal: Musculoskeletal: Reports no additional musculoskeletal complaints [facility] Past Medical History Medical History (Updated 02/20/24 @ 21:32 by Brayden Barrett MD) Anxiety Diabetes mellitus Gastroesophageal reflux disease Hypertension IgA nephropathy Kidney stone Rheumatoid arthritis Surgical History Surgical History History of appendectomy History of cholecystectomy History of hysterectomy Family History Family History Mother No pertinent past medical history Father Diabetes mellitus Family history of cardiovascular disease Mother Family history of emphysema Social History Social History Smoking status: Never smoker Alcohol intake: never Substance use: never Substance use type: does not use Do You Feel Safe in your Home?: Yes Lack of Transportation: No Lack of Food: Never True Current Housing
[2024-02-20 17:30] LABS: Alanine Aminotransferase 14 U/L (6-35); Albumin Level 3.9 g/dL (3.5-5.1); Alkaline Phosphatase 84 U/L (38-126); Anion Gap 12 mmol/L (4-12); Aspartate Amino Transferase 25 U/L (14-36); Bilirubin,Total 0.3 mg/dL (0.2-1.3); Blood Urea Nitrogen 11 mg/dL (7-17); Calcium 8.3 mg/dL (8.4-10.2); Carbon Dioxide 21 mmol/L (22-30); Chloride 100 mmol/L (98-107); Estimated CRCL calculation 69 ml/min; Estimated Glomerular Filt Rate > 60; Glucose 380 mg/dL (65-110); INR 1.1; Magnesium 1.9 mg/dL (1.6-2.3); Potassium 4.5 mmol/L (3.4-5.0); Prothrombin Time 14.6 Seconds (11.1-14.7); Sodium 133 mmol/L (137-145)
[2024-02-20 17:31] LABS: Lactic Acid Reflex 3.7 mmol/L (0.7-2.0)
[2024-02-20] MEDS: INSULIN HUMAN REGULAR (*BKC) 100 UNITS/ML IV PUSH (17:58)
[2024-02-20 18:11] LABS: Alveolar/Arterial O2 Gradient 17.7 mmHg; Base Excess ABG -3.1 mEq/l (+/-2.0); Carboxyhemoglobin 1.2 % THb (0-2.0); Fractional Inspired Oxygen 21 %; HCO3 ABG 20.5 mEq/l (22.0-26.0); Methemoglobin ABG 0.1 %THb (0-1.5); Oxygen Content ABG 10.9 %vol (16.0-22.0); Oxygen Saturation ABG 97.6 % (95.0-100.0); Oxyhemoglobin 96.1 % THb (90.0-100.0); PCO2 ABG 30.6 mmHg (35.0-45.0); PO2 ABG 95.4 mmHg (80.0-100.0); PO2 FiO2 Ratio Arterial Blood 4.54 %; Reduced Hemoglobin 2.6 %THb (0-5.0); pH ABG 7.444 (7.350-7.450)
[2024-02-20 18:12] LABS: Total Hemoglobin 7.9 g/dL (12.0-18.0)
[2024-02-20 18:13] LABS: Device ROOM AIR; Modified Allen's Test Pass; Site Drawn LEFT RADIAL
[2024-02-20 19:03] LABS: Glucose Point of Care 225 mg/dl (65-105)
--- NOTE | 2024-02-20 19:33 | PM.IMHP ---
H&P: HPI History of Present Illness Date/Time: 02/20/24 19:33 Chief Complaint: rectal bleed Narrative: This is a 53-year-old female with past medical history significant for psoriatic arthritis, IgA nephropathy, chronic kidney disease, hypertension, rheumatoid arthritis, steroid induced diabetes. Patient presents to the emergency room due to rectal bleed. Abdominal distension, abdominal pain. preliminary workup was significant for hemoglobin of 7.7. Patient has been admitted for further evaluation management and treatment P Review of Systems Review of Systems: rectal bleed PMFSH Past Medical History Medical History (Updated 02/20/24 @ 21:32 by Brayden Barrett MD) Anxiety Diabetes mellitus Gastroesophageal reflux disease Hypertension IgA nephropathy Kidney stone Rheumatoid arthritis Surgical History Surgical History History of appendectomy History of cholecystectomy History of hysterectomy Family History Family History Mother No pertinent past medical history Father Diabetes mellitus Family history of cardiovascular disease Mother Family history of emphysema Social History Social History Smoking status: Never smoker Alcohol intake: never Substance use: never Substance use type: does not use Do You Feel Safe in your Home?: Yes Lack of Transportation: No Lack of Food: Never True Current Housing: I Have Housing Concerned About Future Housing: No Difficulty Paying Gas/Electric Bills: No Difficulty Paying for Meds: No Currently Unemployed: No Education: High School Diploma/GED Difficulty w/ Childcare or Family Care: No Living arrangements: with family Gender identity (if verbalized by the patient): Female Sexual Orientation (if Verbalized by the Patient): Straight or Heterosexual Spiritual care concerns: Yes (Lutheran) Meds Home Medications and Allergies Home Medications Medication Instructions Recorded Confirmed Type alprazolam 0.25 mg tablet 0.25 mg PO HS 11/23/20 02/20/24 History cetirizine 10 mg tablet 10 mg PO HS 11/23/20 02/20/24 History losartan 100 mg tablet 100 mg PO HS 11/23/20 02/20/24 History metformin 500 mg tablet 500 mg PO BID 11/23/20 02/20/24 History pantoprazole 40 mg tablet,delayed 40 mg PO HS 11/23/20 02/20/24 History release spironolactone 25 mg tablet 25 mg PO BID 11/23/20 02/20/24 History zolpidem 10 mg tablet 10 mg PO HS 11/23/20 02/20/24 History ferrous sulfate 65 mg PO TID 02/09/21 02/20/24 History vitamin E 1,000 unit PO DAILY 02/09/21 02/20/24 History Vitamin D3 5,000 unit PO HS 09/08/23 02/20/24 History ondansetron 4 mg disintegrating 4 mg PO Q8H PRN nausea and 09/10/23 02/20/24 Rx tablet vomiting #20 tabs atorvastatin 10 mg tablet 10 mg PO QAM 02/20/24 02/20/24 History clotrimazole-betamethasone 1 1 applic topical BID 02/20/24 02/20/24 History %-0.05 % topical cream insulin glargine 100 unit/mL (3 15 unit subcut HS 02/20/24 02/20/24 History mL) subcutaneous pen (Lantus Solostar U-100 Insulin) metoprolol succinate 25 mg 25 mg PO DAILY 02/20/24 02/20/24 History tablet,extended release 24 hr pen needle, diabetic 31 gauge x 02/20/24 02/20/24 History 5/16 (BD Ultra-Fine Short Pen Needle) silver sulfadiazine 1 % topical 1 applic topical BID 02/20/24 02/20/24 History cream (SSD) Allergies Allergy/AdvReac Type Severity Reaction Status Date / Time adhesive Allergy Mild Unknown Verified 02/20/24 17:13 latex Allergy Mild Unknown Verified 02/20/24 17:13 codeine Allergy Unknown Unknown Verified 02/20/24 17:13 menaquinone-7 (vitamin K2) Allergy Unknown Unknown Verified 02/20/24 17:13 [vitamin K2] Vital Signs Vital Signs - 24 hr 02/20/24 15:56 02/20/24 16:21 02/20/24 16:22 Temperature 98.7 F Pul
[2024-02-20] MEDS: MORPHINE SULFATE (*CRX) 4 MG/ML INJ IV PUSH (20:08)
[2024-02-20 20:18] LABS: Reflex Lactic Acid Yes or No Add Lactic
[2024-02-20 21:04] LABS: Glucose Point of Care 182 mg/dl (65-105)
[2024-02-20] MEDS: TUBING, BLOOD PLUM PUMP TUBING 1 EACH XX (22:10)
[2024-02-20] MEDS: SODIUM CHLORIDE 0.9% IV 250 ML 30 ML IV CONT (22:10)
[2024-02-21] VITALS (11 sets, daily range): BP systolic 110–127; BP diastolic 59–83; PULSE 70–88; RESP 16–18; TEMP 36.1–36.8; O2SAT 95–100
[2024-02-21] MEDS: metroNIDAZOLE 500 MG/ISO 100ML 500 MG/100 ML BAG 100 MG IVPB ×3 (00:18→16:09)
[2024-02-21] MEDS: INSULIN GLARGINE (*BKC) 100 UNITS/ML 15 UNITS SUB-Q ×2 (00:22→21:05)
[2024-02-21] MEDS: ZOLPIDEM TARTRATE (*CRX) 5 MG TABLET 10 MG PO ×2 (00:22→21:03)
[2024-02-21] MEDS: ALPRAZolam (*CRX) 0.25 MG TABLET PO ×2 (00:22→21:03)
[2024-02-21] MEDS: MESALAMINE 1,000 MG SUPP.RECT 1000 MG RECTAL ×2 (00:22→21:04)
[2024-02-21] MEDS: LORATADINE 10 MG TABLET PO ×2 (00:22→21:03)
[2024-02-21] MEDS: PANTOPRAZOLE 40 MG TABLET PO ×2 (00:22→21:03)
[2024-02-21] MEDS: methylPREDNISolone SOD SUCC 125 MG VIAL IV PUSH ×4 (00:23→17:11)
[2024-02-21] MEDS: CIPROFLOXACIN 400 MG/D5W 200ML 200 ML 200 MG IVPB ×3 (00:27→17:11)
[2024-02-21 00:37] LABS: Hematocrit 25.5 % (37.0-47.0)
[2024-02-21] MEDS: MORPHINE SULFATE (*CRX) 2 MG/ML INJ IV PUSH ×3 (01:30→23:55)
[2024-02-21] MEDS: ONDANSETRON INJ 4 MG/2 ML VIAL IV PUSH ×4 (01:31→23:59)
[2024-02-21 07:33] LABS: Basophils Percent Auto 0.4 % (0.2-1.2); Eosinophils Percent Auto 0.1 % (0-4.4); Hematocrit 32.3 % (37.0-47.0); Immature Granulocyte Absolute 0.13 K/mm3 (0.00-0.031); Immature Granulocyte Percent A 1.3 % (0-0.5); Lymphocytes Absolute Auto 0.75 K/mm3 (0.9-3.2); Lymphocytes Percent Auto 7.5 % (18.3-44.2); Mean Corpuscular Hemoglobin 29.9 pg (26-34); Mean Corpuscular Volume 96.4 fl (80-100); Mean Platelet Volume 11.2 fl (7.4-10.4); Monocytes Percent Auto 0.4 % (2.6-8.5); Neutrophils Absolute Auto 9.1 K/mm3 (1.3-6.7); Neutrophils Percent Auto 90.3 % (45.5-73.1); Nucleated Red Blood Cells Perc 0.2 % (0.0-0.2); Platelet Count Result 301 k/mm3 (150-375); Red Blood Count 3.35 M/mm3 (4.2-5.4)
[2024-02-21 07:47] LABS: Glucose Point of Care 319 mg/dl (65-105)
[2024-02-21] MEDS: BETAMETHASONE/CLOTRIMAZOLE CREAM 15 GM TUBE 1 APPLIC TOPICAL (09:43)
[2024-02-21] MEDS: SILVER SULFADIAZINE 1% CR 50 GM JAR (*BKC) 1 APPLIC TOPICAL ×2 (09:43→17:10)
--- NOTE | 2024-02-21 09:43 | PC.NURSE ---
Report given to PRAVEEN Zavala
[2024-02-21] MEDS: FERROUS SULFATE 325 MG TABLET DR PO ×3 (10:15→16:16)
[2024-02-21] MEDS: METOPROLOL SUCCINATE EXT REL 25 MG TABCR PO (10:15)
[2024-02-21] MEDS: MESALAMINE 400 MG DELAYED RELEASE CAPSULE 800 MG PO ×3 (10:15→16:16)
[2024-02-21] MEDS: ATORVASTATIN 10 MG TABLET PO (10:15)
[2024-02-21] MEDS: VITAMIN E 1,000 UNIT CAPSULE 1000 UNIT PO (10:16)
[2024-02-21 12:06] LABS: Glucose Point of Care 271 mg/dl (65-105)
[2024-02-21] MEDS: INSULIN ASPART (*BKC) 100 UNITS/ML SUB-Q ×3 (12:45→21:04)
[2024-02-21] MEDS: BELLADONNA ALK/PHENOB ELIX 10 ML, MAG HYDROX/ALUMINUM HYD/SIMETH 30 ML, LIDOCAINE HCL 2... PO (13:13)
[2024-02-21 14:50] LABS: Glucose Point of Care 307 mg/dl (65-105)
--- NOTE | 2024-02-21 15:53 | WPDGICN ---
Assessment and Plan Assessment and plan (1) Rectal bleeding: Code(s): K62.5 - Hemorrhage of anus and rectum Status: Acute Assessment and Plan: could be from proctitis or diverticular source continue with canasa supp monitor for more signs of bleeding she was offered in the past skyrizi to control psoriasis- this also could be a good treatment for proctitis- she will discuss with her doctors no need to repeat colonoscopy since had one less than 2 months ago (2) Proctitis: Code(s): K62.89 - Other specified diseases of anus and rectum Status: Acute (3) Anemia: Code(s): D64.9 - Anemia, unspecified Status: Acute (4) IgA nephropathy: Code(s): N02.8 - Recurrent and persistent hematuria with other morphologic changes Status: Acute (5) Psoriasis: Code(s): L40.9 - Psoriasis, unspecified Status: Acute GI Consult Note Consult date/time: 02/21/24 15:53 Reason for consult: rectal bleeding, proctitis HPI: Carole Escobar is a 53 year old female with history significant for psoriatic arthritis but never has been on biolotics, IgA nephropathy (confirmed by renal biopsy- required blood transfusion after biopsy), chronic kidney disease, hypertension, steroid induced diabetes. Patient presents to the emergency room due to rectal bleed. She had colonoscopy about 2 months ago when had rectal bleeding, diagnosed with proctitis and started using canasa supp, here with bleeding again, hgb down to mid 7, given blood transfusion. She also had few years ago LGIB probably due to diverticulosis and required blood transfusion. She is feeling better now, no more bleeding today. Review of Systems Constitutional: Constitutional: Denies headache(s) and Denies weakness Eyes: Eyes: Denies blurry vision ENT: Reports Normal hearing present, Denies headache(s) and Denies neck pain Cardiovascular: Cardiovascular: Denies chest pain and Denies dyspnea Respiratory: Respiratory: Denies dyspnea Gastrointestinal: Gastrointestinal: Reports no additional gastrointestinal complaints Genitourinary: Genitourinary: Denies dysuria Musculoskeletal: Musculoskeletal: Denies neck pain Integumentary/Breasts: Skin/Breast: Denies dry skin Neurologic: Reports Normal hearing present, Denies headache(s) and Denies weakness Psychiatric: Psychiatric: Denies anxiety Endocrine: Endocrine: Denies change in body appearance Hematologic/Lymphatic: Hematologic/Lymphatic: Denies easy bleeding Allergic/Immunologic: Allergic/Immunologic: Denies urticaria PMFSH Past Medical History Medical History (Updated 02/21/24 @ 15:55 by Irwin Chiu MD) Anxiety Diabetes mellitus Gastroesophageal reflux disease Hypertension IgA nephropathy Kidney stone Psoriasis Rheumatoid arthritis Surgical History Surgical History History of appendectomy History of cholecystectomy History of hysterectomy Family History Family History Mother No pertinent past medical history Father Diabetes mellitus Family history of cardiovascular disease Mother Family history of emphysema Social History Social History Smoking status: Never smoker Alcohol intake: never Substance use: never Substance use type: does not use Do You Feel Safe in your Home?: Yes Lack of Transportation: No Lack of Food: Never True Current Housing: I Have Housing Concerned About Future Housing: No Difficulty Paying Gas/Electric Bills: No Difficulty Paying for Meds: No Currently Unemployed: No Education: High School Diploma/GED Difficulty w/ Childcare or Family Care: No Living arrangements: with family Gender identity (if verbalized by the patient): Female Sexual Orientation (if Verbalized by the Patient): Straight or Hete
[2024-02-21 17:09] LABS: Glucose Point of Care 282 mg/dl (65-105)
--- NOTE | 2024-02-21 17:18 | PM.IMPN ---
Progress Note: A&P Assessment and Plan (1) Proctitis: Code(s): K62.89 - Other specified diseases of anus and rectum Status: Acute Assessment and Plan: abdominal pain with rectal bleeding. Patient reports as many as 10 bowel movements a day. She was started on Cipro and Flagyl IV meth Pred 125 mg q.6 mesalamine oral and rectal can trial Bentyl for abdominal cramping p.r.n. tramadol versus [place] for pain GI has been consulted and recommendations are appreciated. Patient may benefit from DMARDs/biologic TB and HIV testing ordered in preparation for possible biologic (2) Anemia: Code(s): D64.9 - Anemia, unspecified Status: Acute Assessment and Plan: most likely secondary to rectal bleeding from proctitis however she could have nutritional deficiencies as well. Hemoglobin on admission was 7.7. She was transfused 2 units of packed red cells by the ER. Monitor H&H daily transfuse for hemoglobin less than 7.0 grams/deciliter iron, B12 panels deferred as she has received 2 units she is receiving t.i.d. iron (3) Diabetes mellitus: Code(s): E11.9 - Type 2 diabetes mellitus without complications Status: Acute Assessment and Plan: hemoglobin A1c ordered. patient has been taking Lantus 15 units at night. A.c. HS Accu-Cheks ordered with high-dose sliding scale, will add lispro 5 units with meals Lantus 15 at HS diabetic diet repeat hemoglobin A1c Plan DVT prophylaxis: SCD, no pharmacological VTE given rectal bleeding Glycemic control: 5 units lispro t.i.d. with meals, high dose SSI, Lantus 15, hypoglycemia protocol ordered Code Status: full code Disposition: 53-year-old female with a history of proctitis comes in with rectal bleeding concerning for proctitis / colitis flare. She is receiving IV steroids, antibiotics. She is also having hyperglycemia in addition to the steroids. She will likely need mealtime dosing insulin at discharge. GI has been consulted. Medication reconciliation obtained via the following: Nurse completed on admission The file time of this note does not necessarily represent the time the patient was seen. Subjective Date/time seen: 02/21/24 17:18 Interval history: This is a very pleasant 53-year-old female with a past medical history significant for psoriasis, IgA nephropathy, proctitis, hypertension, and diabetes who presents from home with complaints of generalized abdominal pain, cramping, and bloody stools. she also reports that her blood sugars have been elevated and she has not been feeling well because of this. She reports that she has had rectal bleeding for the last 30 years without need for blood transfusions but in 2015 she had an AVM which required cautery and blood transfusions. She had been referred to a paste mixer in the past for initiation of Skyrizi but COVID started and she was worried about being immunocompromised so she held off on starting therapy. today she appears as though she does not feel well and is somewhat tearful regarding difficulties with managing her proctitis, psoriasis, and diabetes. Of note, in November of this year she reports stepping out onto her deck barefooted suffering 2nd degree weeks. Her feet are healing well but she has an active psoriasis flare to her hands and feet. Review of Systems Review of Systems: All systems reviewed & are unremarkable except as noted in HPI and below Exam Narrative: General: appears unwell, cushingoid appearance, appears stated age. HEENT: normocephalic, atraumatic. Mucous membranes moist. EOMI, PERRLA, bilateral sclera anicteric, no conjunctival injection. Neck supple without JVD, lymphadenopathy, or bruit. Respiratory: clear to auscultation bilaterally. No rales/rhonic/wheezes. Cardiovascular: Regular rate and rhythm, beryl
[2024-02-21 20:41] LABS: Glucose Point of Care 335 mg/dl (65-105)
[2024-02-21] MEDS: CHOLECALCIFEROL 5,000 UNITS TABLET 5000 UNITS PO (21:03)
[2024-02-21] MEDS: traMADol HCL (*CRX) 25 MG TABLET PO (21:03)
[2024-02-21] MEDS: BETAMETHASONE/CLOTRIMAZOLE CREAM 45 GM TUBE 1 APPLIC TOPICAL (21:04)
[2024-02-22] MEDS: CIPROFLOXACIN 400 MG/D5W 200ML 200 ML 200 MG IVPB ×2 (00:01→09:02)
--- NOTE | 2024-02-22 00:35 | PC.NURSE ---
Pt repeatedly called and crying every time about being in pain despite only rating it a 5/10. Pt repeatedly and adamantly argued that she cannot take any PO pain meds from tylenol and advil to ultram and norco because any and all PO pain meds make hr physically ill. She claims that she explained this to the day time hospitalist who then ordered several various PO medications including pain meds. I explained each time that I have to follow hospitalists' orders and cannot give her what she wants without a doctor order of which there currently is not. Additionally, I repeatedly encouraged her to speak directly with the day shift hospitalist, who placed the orders, with the day shift nurse present so that any further miscommunications can be addressed at that time. She insisted that I call the hospitalist right now and have her fix her orders right now. I explained that was not how it works and she would have to wait to speak to the dayshift hospitalist when she arrives at 0700.
[2024-02-22] MEDS: methylPREDNISolone SOD SUCC 125 MG VIAL IV PUSH ×3 (05:30→13:06)
[2024-02-22 06:00] VITALS: BP 114/74; PULSE 90; RESP 16; TEMP 36.5; O2SAT 100
[2024-02-22 06:54] LABS: Basophils Percent Auto 0.2 % (0.2-1.2); Hematocrit 30.6 % (37.0-47.0); Hemoglobin 9.5 g/dL (12.0-15.0); Immature Granulocyte Absolute 0.08 K/mm3 (0.00-0.031); Immature Granulocyte Percent A 0.7 % (0-0.5); Lymphocytes Absolute Auto 0.68 K/mm3 (0.9-3.2); Lymphocytes Percent Auto 5.9 % (18.3-44.2); Mean Corpuscular Hemoglobin 29.7 pg (26-34); Mean Corpuscular Volume 95.6 fl (80-100); Mean Platelet Volume 11.2 fl (7.4-10.4); Monocytes Absolute Auto 0.3 K/mm3 (0.1-0.6); Monocytes Percent Auto 2.3 % (2.6-8.5); Neutrophils Absolute Auto 10.5 K/mm3 (1.3-6.7); Neutrophils Percent Auto 90.9 % (45.5-73.1); Platelet Count Result 306 k/mm3 (150-375); Red Cell Distribution Width 17.2 % (11.5-14.5); White Blood Count 11.6 K/mm3 (4.5-10.0)
[2024-02-22 07:20] LABS: Anion Gap 13 mmol/L (4-12); Blood Urea Nitrogen 18 mg/dL (7-17); Carbon Dioxide 20 mmol/L (22-30); Chloride 98 mmol/L (98-107); Estimated CRCL calculation 60 ml/min; Potassium 4.6 mmol/L (3.4-5.0); Sodium 131 mmol/L (137-145)
[2024-02-22 07:21] LABS: Alanine Aminotransferase 16 U/L (6-35); Albumin Level 4.1 g/dL (3.5-5.1); Alkaline Phosphatase 59 U/L (38-126); Aspartate Amino Transferase 19 U/L (14-36); Bilirubin,Total 0.5 mg/dL (0.2-1.3); Estimated Glomerular Filt Rate 52; Glucose 273 mg/dL (65-110)
[2024-02-22 07:24] LABS: Hemoglobin A1C 6.5 % (<5.7)
[2024-02-22 08:13] LABS: Glucose Point of Care 287 mg/dl (65-105)
--- NOTE | 2024-02-22 08:17 | PM.IMPN ---
Progress Note: A&P Assessment and Plan (1) Proctitis: Code(s): K62.89 - Other specified diseases of anus and rectum Status: Acute Assessment and Plan: abdominal pain with rectal bleeding. Patient reports as many as 10 bowel movements a day. She was started on Cipro and Flagyl----GI okay with stopping as no colitis on CT IV meth Pred 125 mg q.6---GI decreased to 40 mg daily Cr bump 1.4 with rectal bleeding. She feels puffy. Will have her push fluids today and recheck lab in the am. mesalamine oral and rectal p.r.n. tramadol versus [place] for pain patient requested GI cocktail as it has helped before GI has been consulted and recommendations are appreciated. Patient may benefit from DMARDs/biologic TB, hepatitis, and HIV testing ordered in preparation for possible biologic CRP ordered (2) Anemia: Code(s): D64.9 - Anemia, unspecified Status: Acute Assessment and Plan: most likely secondary to rectal bleeding from proctitis however she could have nutritional deficiencies as well. Hemoglobin on admission was 7.7. She was transfused 2 units of packed red cells by the ER. Monitor H&H daily transfuse for hemoglobin less than 7.0 grams/deciliter iron, B12 panels deferred as she has received 2 units she is receiving t.i.d. iron (3) Diabetes mellitus: Code(s): E11.9 - Type 2 diabetes mellitus without complications Status: Acute Assessment and Plan: hemoglobin A1c ordered. patient has been taking Lantus 15 units at night. A.c. HS Accu-Cheks ordered with high-dose sliding scale, will add lispro 5 units with meals Lantus 15 at HS diabetic diet repeat hemoglobin A1c was 6.5% agricultural extension educator consulted Plan DVT prophylaxis: SCD, no pharmacological VTE given rectal bleeding Glycemic control: 5 units lispro t.i.d. with meals, high dose SSI, Lantus 15, hypoglycemia protocol ordered Code Status: full code Disposition: 53-year-old female with a history of proctitis comes in with rectal bleeding concerning for proctitis / colitis flare. She is receiving IV steroids, antibiotics. She is also having hyperglycemia in addition to the steroids. She will likely need mealtime dosing insulin at discharge. GI has been consulted. Medication reconciliation obtained via the following: Nurse completed on admission The file time of this note does not necessarily represent the time the patient was seen. Subjective Date/time seen: 02/22/24 08:17 Interval history: This is a very pleasant 53-year-old female with a past medical history significant for psoriasis, IgA nephropathy, proctitis, hypertension, and diabetes who presents from home with complaints of generalized abdominal pain, cramping, and bloody stools. she also reports that her blood sugars have been elevated and she has not been feeling well because of this. She reports that she has had rectal bleeding for the last 30 years without need for blood transfusions but in 2015 she had an AVM which required cautery and blood transfusions. She had been referred to a clinical laboratory director in the past for initiation of Skyrizi but COVID started and she was worried about being immunocompromised so she held off on starting therapy. today she appears as though she does not feel well and is somewhat tearful regarding difficulties with managing her proctitis, psoriasis, and diabetes. Of note, in November of this year she reports stepping out onto her deck barefooted suffering 2nd degree weeks. Her feet are healing well but she has an active psoriasis flare to her hands and feet. 02/21: Patient says she is frustrated. She is upset because she says she cannot tolerate oral pain medication. She also feels like her feet are puffy and she is asking why spironolactone is being held. Plan of care was discussed in d
[2024-02-22] MEDS: VITAMIN E 1,000 UNIT CAPSULE 1000 UNIT PO (09:01)
[2024-02-22] MEDS: ATORVASTATIN 10 MG TABLET PO (09:02)
[2024-02-22] MEDS: FERROUS SULFATE 325 MG TABLET DR PO ×3 (09:02→18:12)
[2024-02-22 09:04] VITALS: PULSE 96
[2024-02-22] MEDS: METOPROLOL SUCCINATE EXT REL 25 MG TABCR PO (09:04)
[2024-02-22] MEDS: BETAMETHASONE/CLOTRIMAZOLE CREAM 45 GM TUBE 1 APPLIC TOPICAL ×2 (09:10→20:02)
[2024-02-22] MEDS: SILVER SULFADIAZINE 1% CR 50 GM JAR (*BKC) 1 APPLIC TOPICAL ×2 (09:11→18:13)
[2024-02-22] MEDS: INSULIN ASPART (*BKC) 100 UNITS/ML SUB-Q ×7 (09:14→20:03)
[2024-02-22 11:25] VITALS: BMI 36.4
[2024-02-22] MEDS: metroNIDAZOLE 500 MG/ISO 100ML 500 MG/100 ML BAG 100 MG IVPB ×2 (12:56)
[2024-02-22 13:02] LABS: Glucose Point of Care 269 mg/dl (65-105)
--- NOTE | 2024-02-22 13:57 | WPDGIPROGNO ---
Progress Note: A&P Assessment and Plan (1) Proctitis: Code(s): K62.89 - Other specified diseases of anus and rectum Status: Acute Assessment and Plan: mesalamine supp on iv steroids but noted that she has been getting high dose- will decrease to only 40 mg IV once daily, she probably could even go home with budesonide if any steroids, normally mesalamine should be enough without steroids- she has been running high glucose CT scan reviewed and no obvious colitis, probably also discontinue abx miralax now (2) Anemia: Code(s): D64.9 - Anemia, unspecified Status: Acute Assessment and Plan: stable (3) Psoriasis: Code(s): L40.9 - Psoriasis, unspecified Status: Acute Assessment and Plan: probably will need biologics- skyrizi can be used for both proctitis and psoriasis will follow-up with doctors (4) Rectal bleeding: Code(s): K62.5 - Hemorrhage of anus and rectum Status: Acute Assessment and Plan: established with GI in [facility] (5) Diabetes mellitus: Code(s): E11.9 - Type 2 diabetes mellitus without complications Status: Acute Subjective Date/time seen: 02/22/24 13:57 Interval history: no BM and she is worried about constipation (days ago started bleeding after straining) Review of Systems Review of Systems: All systems reviewed & are unremarkable except as noted in HPI and below Exam Const: General: comfortable and no acute distress HENMT: Face/Nose/Sinus: Normal nares present Eyes: General: appearance normal, both eyes and all related structures Neck: Neck: no JVD Resp: Auscultation: clear to auscultation bilaterally Cardio: Rate: regular rate Rhythm: regular rhythm GI: Inspection: non-distended GI Palp: Yes Soft to palpation and No Tenderness to palpation present (GI) Auscultation: normal bowel sounds Skin: General skin exam: normal color Neuro: Speech: normal speech Motor exam (neuro): 5/5 motor strength present throughout Extrem: General: normal to inspection Psych: Mental Status: mental status grossly normal Objective Data Vital Signs Vital Signs: Vital Signs - 24 hr 02/21/24 14:00 02/21/24 20:42 02/21/24 20:00 Temperature 97.2 F L 97.3 F L Pulse Rate 87 88 Respiratory Rate 16 18 Blood Pressure 117/59 L 110/74 Pulse Oximetry 100 100 Oxygen Delivery Room Air 02/22/24 06:00 02/22/24 09:04 Temperature 97.7 F Pulse Rate 90 96 Respiratory Rate 16 Blood Pressure 114/74 Pulse Oximetry 100 Oxygen Delivery Intake/Output Intake/Output: Intake & Output 02/19/24 02/20/24 02/21/24 02/22/24 23:59 23:59 23:59 23:59 Intake Total 2027 2463.3 1041.7 Balance 2027 2463.3 1041.7 Meds/Results Medications: Active Medications Generic Name Dose Route Start Last Admin Trade Name Freq PRN Reason Stop Dose Admin Acetaminophen 650 mg 02/20/24 19:39 Acetaminophen 325 Mg Tablet PO Q4H PRN Mild Pain (1-3) or Fever Alprazolam 0.25 mg 02/20/24 23:25 02/21/24 21:03 Alprazolam (*Crx) 0.25 Mg Tablet PO 0.25 mg HS LOUANN Administration Atorvastatin Calcium 10 mg 02/21/24 09:00 02/22/24 09:02 Atorvastatin 10 Mg Tablet PO 10 mg QAM LOUANN Administration Clotrimazole 1 applic 02/21/24 21:00 02/22/24 09:10 Betamethasone/Clotrimazole Cream 45 Gm Tube TOPICAL 1 applic Q12HR LOUANN Administration Dextrose 12.5 gm 02/21/24 12:27 Dextrose 50% 25 Gm/50 Ml Syringe IV PUSH PRN PRN Hypoglycemia Protocol Dicyclomine HCl 20 mg 02/21/24 17:31 Dicyclomine Hcl 10 Mg Capsule PO QID PRN Abdominal Cramping Ferrous Sulfate 325 mg 02/21/24 09:00 02/22/24 12:54 Ferrous Sulfate [address] PO 325 mg TID LOUANN Administration Glucagon 1 mg 02/21/24 12:27 Glucagon For Inj 1 Mg Vial IM PRN PRN Hypoglycemia Protocol Glucose 15 gm 02/21/24 12:27 Glucose Oral Gel 15 Gm Of Glucse In 37.5 Gm T
[2024-02-22 14:04] VITALS: BP 117/74; PULSE 89; RESP 16; TEMP 36.4; O2SAT 100
[2024-02-22 14:12] LABS: Glucose Point of Care 296 mg/dl (65-105)
[2024-02-22] MEDS: ACETAMINOPHEN 325 MG TABLET 650 MG PO ×2 (15:13→20:15)
[2024-02-22] MEDS: ALPRAZolam (*CRX) 0.25 MG TABLET PO ×2 (15:15→20:08)
[2024-02-22] MEDS: BELLADONNA ALK/PHENOB ELIX 10 ML, MAG HYDROX/ALUMINUM HYD/SIMETH 30 ML, LIDOCAINE HCL 2... PO (15:16)
[2024-02-22] MEDS: polyethylene glycoL 3350 17 GM POWD.PACK PO (15:18)
[2024-02-22 17:22] LABS: Glucose Point of Care 348 mg/dl (65-105)
[2024-02-22 17:31] LABS: CRP < 0.5 mg/dL (<1.0)
[2024-02-22] MEDS: MORPHINE SULFATE (*CRX) 2 MG/ML INJ IV PUSH (18:53)
[2024-02-22] MEDS: ONDANSETRON INJ 4 MG/2 ML VIAL IV PUSH (18:57)
[2024-02-22 20:00] VITALS: PULSE 83; RESP 16; O2SAT 99
[2024-02-22] MEDS: ZOLPIDEM TARTRATE (*CRX) 5 MG TABLET 10 MG PO (20:00)
[2024-02-22] MEDS: LORATADINE 10 MG TABLET PO (20:01)
[2024-02-22] MEDS: CHOLECALCIFEROL 5,000 UNITS TABLET 5000 UNITS PO (20:01)
[2024-02-22] MEDS: MESALAMINE 1,000 MG SUPP.RECT 1000 MG RECTAL (20:01)
[2024-02-22] MEDS: PANTOPRAZOLE 40 MG TABLET PO (20:01)
[2024-02-22] MEDS: INSULIN GLARGINE (*BKC) 100 UNITS/ML 15 UNITS SUB-Q (20:02)
[2024-02-22 20:45] LABS: Glucose Point of Care 329 mg/dl (65-105)
[2024-02-22 20:57] VITALS: BP 106/66; PULSE 83; RESP 16; TEMP 36.6; O2SAT 99
[2024-02-23] MEDS: MORPHINE SULFATE (*CRX) 2 MG/ML INJ IV PUSH ×2 (01:40→14:43)
[2024-02-23 05:19] VITALS: BP 109/80; PULSE 71; RESP 16; TEMP 36.5; O2SAT 100
[2024-02-23 07:40] LABS: Glucose Point of Care 214 mg/dl (65-105)
[2024-02-23 08:09] LABS: Basophils Percent Auto 0.1 % (0.2-1.2); Hematocrit 31.1 % (37.0-47.0); Hemoglobin 9.5 g/dL (12.0-15.0); Immature Granulocyte Percent A 0.8 % (0-0.5); Lymphocytes Absolute Auto 0.99 K/mm3 (0.9-3.2); Lymphocytes Percent Auto 8.3 % (18.3-44.2); Mean Corpuscular HGB Conc 30.5 g/dl (32-36); Mean Corpuscular Hemoglobin 29.6 pg (26-34); Mean Corpuscular Volume 96.9 fl (80-100); Mean Platelet Volume 11.1 fl (7.4-10.4); Monocytes Absolute Auto 0.9 K/mm3 (0.1-0.6); Monocytes Percent Auto 7.1 % (2.6-8.5); Neutrophils Percent Auto 83.7 % (45.5-73.1); Platelet Count Result 299 k/mm3 (150-375); Red Blood Count 3.21 M/mm3 (4.2-5.4); Red Cell Distribution Width 17.3 % (11.5-14.5); White Blood Count 11.9 K/mm3 (4.5-10.0)
[2024-02-23 08:15] VITALS: O2SAT 96
[2024-02-23 08:19] LABS: Alanine Aminotransferase 16 U/L (6-35); Albumin Level 3.9 g/dL (3.5-5.1); Alkaline Phosphatase 53 U/L (38-126); Anion Gap 8 mmol/L (4-12); Aspartate Amino Transferase 23 U/L (14-36); Bilirubin,Total 0.3 mg/dL (0.2-1.3); Blood Urea Nitrogen 25 mg/dL (7-17); Calcium 8.8 mg/dL (8.4-10.2); Carbon Dioxide 26 mmol/L (22-30); Chloride 100 mmol/L (98-107); Estimated CRCL calculation 60 ml/min; Estimated Glomerular Filt Rate 52; Glucose 216 mg/dL (65-110); Magnesium 2.2 mg/dL (1.6-2.3); Potassium 4.3 mmol/L (3.4-5.0); Sodium 134 mmol/L (137-145)
--- NOTE | 2024-02-23 09:46 | PM.IMPN ---
Progress Note: A&P Assessment and Plan (1) Proctitis: Code(s): K62.89 - Other specified diseases of anus and rectum Status: Acute Assessment and Plan: D/C Cipro and Flagyl----GI okay with stopping as no colitis on CT IV meth Pred 125 mg q.6---GI decreased to 40 mg daily Upon discharge we will change it to Budesonide 9mg PO QD x 12 weeks and will follow up with GI mesalamine oral and rectal p.r.n. tramadol versus [place] for pain patient requested GI cocktail as it has helped before GI has been consulted and recommendations are appreciated. Patient may benefit from DMARDs/biologic TB, hepatitis, and HIV testing ordered in preparation for possible biologic CRP ordered (2) Anemia: Code(s): D64.9 - Anemia, unspecified Status: Acute Assessment and Plan: most likely secondary to rectal bleeding from proctitis however she could have nutritional deficiencies as well. Hemoglobin on admission was 7.7. She was transfused 2 units of packed red cells by the ER. Monitor H&H daily transfuse for hemoglobin less than 7.0 grams/deciliter H/H .11/26 iron, B12 panels deferred as she has received 2 units she is receiving t.i.d. iron (3) Diabetes mellitus: Code(s): E11.9 - Type 2 diabetes mellitus without complications Status: Acute Assessment and Plan: hemoglobin A1c ordered. patient has been taking Lantus 15 units at night. A.c. HS Accu-Cheks ordered with high-dose sliding scale, will add lispro 5 units with meals Lantus 15 at HS diabetic diet repeat hemoglobin A1c was 6.5% freedom of information officer consulted (4) OJ (acute kidney injury): Code(s): N17.9 - Acute kidney failure, unspecified Status: Acute Assessment and Plan: -Trend Cr -Cr 0.9 > 1.1 -Started NS @ 80ml/hr -Hold Spironolactone Plan DVT prophylaxis: SCD, no pharmacological VTE given rectal bleeding Glycemic control: 5 units lispro t.i.d. with meals, high dose SSI, Lantus 15, hypoglycemia protocol ordered Code Status: full code Disposition: 53-year-old female with a history of proctitis comes in with rectal bleeding concerning for proctitis / colitis flare. She is receiving IV steroids, antibiotics. She is also having hyperglycemia in addition to the steroids. She will likely need mealtime dosing insulin at discharge. GI has been consulted. Medication reconciliation obtained via the following: Nurse completed on admission The file time of this note does not necessarily represent the time the patient was seen. Subjective Date/time seen: 02/23/24 09:46 Interval history: The patient was examined at the bedside. Patient was anxious because the spironolactone was on hold due to her elevation in the creatinine from 0.9-1.1. We explained to her what the reason for the hold. Patient understood but anxious on multiple issues. Patient was admitted because of proctitis. Patient was started on steroids 100 her blood sugar was fluctuating and patient is anxious about that. Patient's steroid has been decreased to methylprednisolone 40 mg IV daily. Patient reported she was diagnosed with proctitis [address] Koehler at [facility]. Patient admits that she was not consistent with mesalamine. Last Carl patient started having bowel movement with blood. Her hemoglobin currently stable on 9.5. We will continue to monitor the hemoglobin trend. Patient creatinine has been increased from 0.9-1.1. Started her on gentle fluid resuscitation. Tomorrow will monitor the creatinine and the hemoglobin. We will continue follow the recs from the Gastroenterology and will talk to Dr. Carson tomorrow upon the discharge plan. Review of Systems Review of Systems: rectal bleed All systems reviewed & are unremarkable except as noted in HPI and below Exam
[2024-02-23 10:42] LABS: Glucose Point of Care 210 mg/dl (65-105)
[2024-02-23 10:54] LABS: Hepatitis B Surface Antigen Negative (Negative)
[2024-02-23 10:58] VITALS: PULSE 72
[2024-02-23] MEDS: METOPROLOL SUCCINATE EXT REL 25 MG TABCR PO (10:58)
[2024-02-23 10:59] LABS: HAV RESULT Negative (Negative); Hepatitis B Core IgM Result Negative (Negative)
[2024-02-23] MEDS: FERROUS SULFATE 325 MG TABLET DR PO ×3 (11:01→16:45)
[2024-02-23] MEDS: ATORVASTATIN 10 MG TABLET PO (11:01)
[2024-02-23] MEDS: BETAMETHASONE/CLOTRIMAZOLE CREAM 45 GM TUBE 1 APPLIC TOPICAL ×2 (11:01→20:59)
[2024-02-23] MEDS: VITAMIN E 1,000 UNIT CAPSULE 1000 UNIT PO (11:02)
[2024-02-23] MEDS: SILVER SULFADIAZINE 1% CR 50 GM JAR (*BKC) 1 APPLIC TOPICAL ×2 (11:02→16:46)
[2024-02-23] MEDS: polyethylene glycoL 3350 17 GM POWD.PACK PO (11:06)
[2024-02-23] MEDS: methylPREDNISolone SOD SUCC 40 MG VIAL IV PUSH (11:06)
[2024-02-23 11:11] LABS: Hepatitis C Virus Antibody Negative (Negative)
--- NOTE | 2024-02-23 11:27 | PC.NURSE ---
This RN assumed care for Carole Escobar at 10:30.
[2024-02-23 12:11] LABS: Glucose Point of Care 216 mg/dl (65-105)
[2024-02-23] MEDS: INSULIN ASPART (*BKC) 100 UNITS/ML SUB-Q ×5 (12:27→21:00)
[2024-02-23] MEDS: SODIUM CHLORIDE 0.9% IV 1,000 ML 80 ML IV CONT (12:27)
[2024-02-23] MEDS: ONDANSETRON INJ 4 MG/2 ML VIAL IV PUSH (14:43)
[2024-02-23 14:48] VITALS: BP 133/84; PULSE 75; RESP 22; O2SAT 97
[2024-02-23] MEDS: SENNA/DOCUSATE SODIUM TABLET 1 TAB PO (16:45)
--- NOTE | 2024-02-23 16:51 | WPDGIPROGNO ---
Progress Note: A&P Assessment and Plan (1) Proctitis: Code(s): K62.89 - Other specified diseases of anus and rectum Status: Acute Assessment and Plan: mesalamine supp on iv steroids initially she was getting high dose then lowered to once daily, I do not think that needs more steroids for proctitis (no colitis by CT scan) and she developed edema, difficult to control glucose, etc miralax for constipation she can follow-up with her GI doctor (2) Anemia: Code(s): D64.9 - Anemia, unspecified Status: Acute Assessment and Plan: stable (3) Psoriasis: Code(s): L40.9 - Psoriasis, unspecified Status: Acute Assessment and Plan: probably will need biologics- skyrizi can be used for both proctitis and psoriasis will follow-up with doctors (4) Rectal bleeding: Code(s): K62.5 - Hemorrhage of anus and rectum Status: Acute Assessment and Plan: established with GI in [facility] (5) Diabetes mellitus: Code(s): E11.9 - Type 2 diabetes mellitus without complications Status: Acute Subjective Date/time seen: 02/23/24 16:51 Interval history: still no BM, she is constipated tried miralax also c/o retaining fluid Review of Systems Review of Systems: All systems reviewed & are unremarkable except as noted in HPI and below Exam Const: General: comfortable and no acute distress HENMT: Face/Nose/Sinus: Normal nares present Eyes: General: appearance normal, both eyes and all related structures Neck: Neck: supple Resp: Auscultation: clear to auscultation bilaterally Cardio: Rate: regular rate Rhythm: regular rhythm GI: Inspection: non-distended GI Palp: Yes Soft to palpation and No Tenderness to palpation present (GI) Auscultation: normal bowel sounds Skin: General skin exam: normal color Neuro: Speech: normal speech Motor exam (neuro): 5/5 motor strength present throughout Extrem: Other: trace leg edema Psych: Mental Status: mental status grossly normal Objective Data Vital Signs Vital Signs: Vital Signs - 24 hr 02/22/24 20:57 02/22/24 20:00 02/23/24 05:19 Temperature 97.8 F 97.7 F Pulse Rate 83 83 71 Respiratory Rate 16 16 16 Blood Pressure 106/66 109/80 Pulse Oximetry 99 99 100 Oxygen Delivery Room Air Fraction of Inspired Oxygen 02/23/24 08:15 02/23/24 10:58 02/23/24 11:42 Temperature Pulse Rate 72 Respiratory Rate Blood Pressure Pulse Oximetry 96 Oxygen Delivery Room Air Room Air Fraction of Inspired Oxygen 21 02/23/24 14:48 Temperature Pulse Rate 75 Respiratory Rate 22 H Blood Pressure 133/84 Pulse Oximetry 97 Oxygen Delivery Fraction of Inspired Oxygen Intake/Output Intake/Output: Intake & Output 02/20/24 02/21/24 02/22/24 02/23/24 23:59 23:59 23:59 23:59 Intake Total 2027 2463.3 1761.7 600 Balance 2027 2463.3 1761.7 600 Meds/Results Medications: Active Medications Generic Name Dose Route Start Last Admin Trade Name Freq PRN Reason Stop Dose Admin Acetaminophen 650 mg 02/20/24 19:39 02/22/24 20:15 Acetaminophen 325 Mg Tablet PO 650 mg Q4H PRN Administration Mild Pain (1-3) or Fever Alprazolam 0.25 mg 02/22/24 17:31 02/22/24 20:08 Alprazolam (*Crx) 0.25 Mg Tablet PO 0.25 mg BID PRN Administration Anxiety Atorvastatin Calcium 10 mg 02/21/24 09:00 02/23/24 11:01 Atorvastatin 10 Mg Tablet PO 10 mg QAM LOUANN Administration Clotrimazole 1 applic 02/21/24 21:00 02/23/24 11:01 Betamethasone/Clotrimazole Cream 45 Gm Tube TOPICAL 1 applic Q12HR LOUANN Administration Dextrose 12.5 gm 02/21/24 12:27 Dextrose 50% 25 Gm/50 Ml Syringe IV PUSH PRN PRN Hypoglycemia Protocol Ferrous Sulfate 325 mg 02/21/24 09:00 02/23/24 16:45 Ferrous Sulfate [address] PO 325 mg TID LOUANN Administration Glucagon 1 mg 02/21/24 12:27 Glucagon For Inj 1 Mg Vial IM PRN PRN Hyp
[2024-02-23 17:08] LABS: Glucose Point of Care 352 mg/dl (65-105)
[2024-02-23 20:00] VITALS: PULSE 87; RESP 18; O2SAT 96
[2024-02-23 20:33] LABS: HIV 1 RNA PCR NOT DETECTED (NOT DETECTED); HIV 1 RNA PCR NOT DETECTED copies/mL (NOT DETECTED)
[2024-02-23] MEDS: CHOLECALCIFEROL 5,000 UNITS TABLET 5000 UNITS PO ×2 (20:56→21:05)
[2024-02-23] MEDS: LORATADINE 10 MG TABLET PO (20:57)
[2024-02-23] MEDS: INSULIN GLARGINE (*BKC) 100 UNITS/ML 15 UNITS SUB-Q (21:00)
[2024-02-23] MEDS: PANTOPRAZOLE 40 MG TABLET PO (21:05)
[2024-02-23] MEDS: ZOLPIDEM TARTRATE (*CRX) 5 MG TABLET 10 MG PO (21:05)
[2024-02-23] MEDS: ALPRAZolam (*CRX) 0.25 MG TABLET PO (21:20)
[2024-02-23] MEDS: MESALAMINE 1,000 MG SUPP.RECT 1000 MG RECTAL (21:20)
[2024-02-23 22:00] VITALS: BP 123/80; PULSE 87; RESP 18; TEMP 36.9; O2SAT 96
[2024-02-23] MEDS: ACETAMINOPHEN 325 MG TABLET 650 MG PO (22:15)
[2024-02-24 00:51] LABS: Glucose Point of Care 328 mg/dl (65-105)
[2024-02-24] MEDS: SODIUM CHLORIDE 0.9% IV 1,000 ML 80 ML IV CONT ×2 (05:01→17:43)
[2024-02-24 05:47] VITALS: BP 149/90; PULSE 86; RESP 18; TEMP 36.2; O2SAT 100
[2024-02-24 06:52] LABS: Basophils Percent Auto 0.2 % (0.2-1.2); Hematocrit 30.2 % (37.0-47.0); Hemoglobin 9.2 g/dL (12.0-15.0); Immature Granulocyte Absolute 0.18 K/mm3 (0.00-0.031); Immature Granulocyte Percent A 1.6 % (0-0.5); Lymphocytes Absolute Auto 1.16 K/mm3 (0.9-3.2); Lymphocytes Percent Auto 10.3 % (18.3-44.2); Mean Corpuscular HGB Conc 30.5 g/dl (32-36); Mean Corpuscular Volume 98.4 fl (80-100); Mean Platelet Volume 11.4 fl (7.4-10.4); Monocytes Absolute Auto 0.9 K/mm3 (0.1-0.6); Monocytes Percent Auto 8.2 % (2.6-8.5); Neutrophils Absolute Auto 8.9 K/mm3 (1.3-6.7); Neutrophils Percent Auto 79.7 % (45.5-73.1); Platelet Count Result 256 k/mm3 (150-375); Red Blood Count 3.07 M/mm3 (4.2-5.4); Red Cell Distribution Width 16.8 % (11.5-14.5); White Blood Count 11.2 K/mm3 (4.5-10.0)
[2024-02-24 07:05] LABS: Alanine Aminotransferase 19 U/L (6-35); Albumin Level 3.6 g/dL (3.5-5.1); Alkaline Phosphatase 56 U/L (38-126); Anion Gap 8 mmol/L (4-12); Aspartate Amino Transferase 27 U/L (14-36); Bilirubin,Total 0.3 mg/dL (0.2-1.3); Blood Urea Nitrogen 22 mg/dL (7-17); Calcium 8.5 mg/dL (8.4-10.2); Carbon Dioxide 25 mmol/L (22-30); Chloride 101 mmol/L (98-107); Estimated CRCL calculation 66 ml/min; Estimated Glomerular Filt Rate 58; Glucose 187 mg/dL (65-110); Magnesium 2.1 mg/dL (1.6-2.3); Potassium 4.1 mmol/L (3.4-5.0); Sodium 134 mmol/L (137-145)
[2024-02-24 08:15] LABS: Glucose Point of Care 186 mg/dl (65-105)
[2024-02-24 08:19] VITALS: BP 133/78; PULSE 84; RESP 18; TEMP 37; O2SAT 100
[2024-02-24] MEDS: polyethylene glycoL 3350 17 GM POWD.PACK PO (09:30)
[2024-02-24] MEDS: SENNA/DOCUSATE SODIUM TABLET 1 TAB PO ×2 (09:30→17:36)
[2024-02-24] MEDS: FERROUS SULFATE 325 MG TABLET DR PO ×3 (09:30→17:36)
[2024-02-24] MEDS: ATORVASTATIN 10 MG TABLET PO (09:30)
[2024-02-24] MEDS: METOPROLOL SUCCINATE EXT REL 25 MG TABCR PO (09:30)
[2024-02-24] MEDS: BETAMETHASONE/CLOTRIMAZOLE CREAM 45 GM TUBE 1 APPLIC TOPICAL ×2 (09:31→20:56)
[2024-02-24] MEDS: SILVER SULFADIAZINE 1% CR 50 GM JAR (*BKC) 1 APPLIC TOPICAL ×2 (09:31→17:38)
[2024-02-24] MEDS: VITAMIN E 1,000 UNIT CAPSULE 1000 UNIT PO (09:35)
[2024-02-24] MEDS: ALPRAZolam (*CRX) 0.25 MG TABLET PO ×2 (09:35→20:55)
[2024-02-24] MEDS: INSULIN ASPART (*BKC) 100 UNITS/ML SUB-Q ×4 (09:35→17:38)
[2024-02-24 10:31] LABS: Glucose Point of Care 211 mg/dl (65-105)
[2024-02-24 11:26] LABS: Glucose Point of Care 193 mg/dl (65-105)
--- NOTE | 2024-02-24 12:16 | PCPTNOTE ---
On 02/24/24, the student, [Patricia Shelton], provided care and completed [facility] documentation on this patient. I have reviewed the student's documentation and agree with the findings.
[2024-02-24] MEDS: ACETAMINOPHEN 325 MG TABLET 650 MG PO (12:55)
[2024-02-24 14:00] VITALS: BP 120/44; PULSE 82; RESP 18; TEMP 36.2; O2SAT 94
--- NOTE | 2024-02-24 16:12 | P.PNIM_ITS ---
Progress Note: A&P Assessment and Plan (1) Proctitis: Code(s): K62.89 - Other specified diseases of anus and rectum Status: Acute Assessment and Plan: * D/C Cipro and Flagyl----GI okay with stopping as no colitis on CT * s/p :meth Pred 125 mg q.6 * Upon discharge we will change it to Budesonide 9mg PO QD x 12 weeks and will follow up with GI * mesalamine oral and rectal * p.r.n. tramadol versus [place] for pain * patient requested GI cocktail as it has helped before * GI has been consulted and recommendations are appreciated. * Patient may benefit from DMARDs/biologic * TB, hepatitis, and HIV testing ordered in preparation for possible biologic * CRP ordered (2) Anemia: Code(s): D64.9 - Anemia, unspecified Status: Acute Assessment and Plan: most likely secondary to rectal bleeding from proctitis however she could have nutritional deficiencies as well. Hemoglobin on admission was 7.7. She was transfused 2 units of packed red cells by the ER. * Monitor H&H daily * transfuse for hemoglobin less than 7.0 grams/deciliter * H/H 9.2/30.2<9.5/31 * iron, B12 panels deferred as she has received 2 units * she is receiving t.i.d. iron (3) Diabetes mellitus: Code(s): E11.9 - Type 2 diabetes mellitus without complications Status: Acute Assessment and Plan: hemoglobin A1c ordered. patient has been taking Lantus 15 units at night. * A.c. HS Accu-Cheks ordered with high-dose sliding scale, will add lispro 5 units with meals * Lantus 15 at HS * diabetic diet * repeat hemoglobin A1c was 6.5% * personal development educator consulted (4) OJ (acute kidney injury): Code(s): N17.9 - Acute kidney failure, unspecified Status: Acute Assessment and Plan: -Trend Cr -Cr 0.9 > 1.1< 1 -Started NS @ 80ml/hr -Hold Spironolactone Plan DVT prophylaxis: SCD, no pharmacological VTE given rectal bleeding Glycemic control: 5 units lispro t.i.d. with meals, high dose SSI, Lantus 15, hypoglycemia protocol ordered Code Status: full code Disposition: 53-year-old female with a history of proctitis comes in with rectal bleeding concerning for proctitis / colitis flare. She is receiving IV steroids, antibiotics. She is also having hyperglycemia in addition to the steroids. She will likely need mealtime dosing insulin at discharge. GI has been consulted. Medication reconciliation obtained via the following: Nurse completed on admission The file time of this note does not necessarily represent the time the patient was seen. Subjective Date/time seen: 02/24/24 16:12 Interval history: The patient was examined at the bedside. Patient creatinine is getting better and probably will discharge tomorrow with the spironolactone and under adequate to fluid intake. In the event of discharge advised to follow up with the GI, PCP and the server security administrator in a week. Review of Systems Review of Systems: rectal bleed All systems reviewed & are unremarkable except as noted in HPI and below Exam Narrative: General: appears unwell, cushingoid appearance, appears stated age. HEENT: normocephalic, atraumatic. Mucous membranes moist. EOMI, PERRLA, bilateral sclera anicteric, no conjunctival injection. Neck supple without JVD, lymphadenopathy, or bruit. Respiratory: clear to auscultation bilaterally. No rales/rhonic/wheezes. Cardiovascular: Regu
--- NOTE | 2024-02-24 16:12 | PM.IMPN ---
Progress Note: A&P Assessment and Plan (1) Proctitis: Code(s): K62.89 - Other specified diseases of anus and rectum Status: Acute Assessment and Plan: D/C Cipro and Flagyl----GI okay with stopping as no colitis on CT s/p :meth Pred 125 mg q.6 Upon discharge we will change it to Budesonide 9mg PO QD x 12 weeks and will follow up with GI mesalamine oral and rectal p.r.n. tramadol versus [place] for pain patient requested GI cocktail as it has helped before GI has been consulted and recommendations are appreciated. Patient may benefit from DMARDs/biologic TB, hepatitis, and HIV testing ordered in preparation for possible biologic CRP ordered (2) Anemia: Code(s): D64.9 - Anemia, unspecified Status: Acute Assessment and Plan: most likely secondary to rectal bleeding from proctitis however she could have nutritional deficiencies as well. Hemoglobin on admission was 7.7. She was transfused 2 units of packed red cells by the ER. Monitor H&H daily transfuse for hemoglobin less than 7.0 grams/deciliter H/H 9.2/30.2<9.5/31 iron, B12 panels deferred as she has received 2 units she is receiving t.i.d. iron (3) Diabetes mellitus: Code(s): E11.9 - Type 2 diabetes mellitus without complications Status: Acute Assessment and Plan: hemoglobin A1c ordered. patient has been taking Lantus 15 units at night. A.c. HS Accu-Cheks ordered with high-dose sliding scale, will add lispro 5 units with meals Lantus 15 at HS diabetic diet repeat hemoglobin A1c was 6.5% salvage mechanic consulted (4) OJ (acute kidney injury): Code(s): N17.9 - Acute kidney failure, unspecified Status: Acute Assessment and Plan: -Trend Cr -Cr 0.9 > 1.1< 1 -Started NS @ 80ml/hr -Hold Spironolactone Plan DVT prophylaxis: SCD, no pharmacological VTE given rectal bleeding Glycemic control: 5 units lispro t.i.d. with meals, high dose SSI, Lantus 15, hypoglycemia protocol ordered Code Status: full code Disposition: 53-year-old female with a history of proctitis comes in with rectal bleeding concerning for proctitis / colitis flare. She is receiving IV steroids, antibiotics. She is also having hyperglycemia in addition to the steroids. She will likely need mealtime dosing insulin at discharge. GI has been consulted. Medication reconciliation obtained via the following: Nurse completed on admission The file time of this note does not necessarily represent the time the patient was seen. Subjective Date/time seen: 02/24/24 16:12 Interval history: The patient was examined at the bedside. Patient creatinine is getting better and probably will discharge tomorrow with the spironolactone and under adequate to fluid intake. In the event of discharge advised to follow up with the GI, PCP and the night shift supervisor in a week. Review of Systems Review of Systems: rectal bleed All systems reviewed & are unremarkable except as noted in HPI and below Exam Narrative: General: appears unwell, cushingoid appearance, appears stated age. HEENT: normocephalic, atraumatic. Mucous membranes moist. EOMI, PERRLA, bilateral sclera anicteric, no conjunctival injection. Neck supple without JVD, lymphadenopathy, or bruit. Respiratory: clear to auscultation bilaterally. No rales/rhonic/wheezes. Cardiovascular: Regular rate and rhythm, normal S1-S2 upon auscultation. No murmurs, rubs, or clicks. PMI is nondisplaced, capillary refill less than 3 second. Abdomen: Soft, round, no pulsatile masses, nondistended and moderately tender to generalized abdomen, No rebound, no guarding. No CVA tenderness, no hepatosplenomegaly. Bowel sounds present to all four quadrants. No high pitch or tinkling sounds, resonant to percussion. Extremities: No cyanosis, clubbing
[2024-02-24 16:51] LABS: Glucose Point of Care 212 mg/dl (65-105)
--- NOTE | 2024-02-24 16:51 | WPDGIPROGNO ---
Progress Note: A&P Assessment and Plan (1) Proctitis: Code(s): K62.89 - Other specified diseases of anus and rectum Status: Acute Assessment and Plan: mesalamine supp on iv steroids initially she was getting high dose then lowered to once daily, I do not think that needs more steroids for proctitis and this was discontinued (no colitis by CT scan) probably home tomorrow and can follow-up with her GI doctor (2) Anemia: Code(s): D64.9 - Anemia, unspecified Status: Acute Assessment and Plan: stable (3) Psoriasis: Code(s): L40.9 - Psoriasis, unspecified Status: Acute Assessment and Plan: probably will need biologics- skyrizi can be used for both proctitis and psoriasis will follow-up with doctors (4) Rectal bleeding: Code(s): K62.5 - Hemorrhage of anus and rectum Status: Acute Assessment and Plan: also could be from hemorrhoids (some more bleeding after straining) still constipated, will give one dose of lactulose (5) Diabetes mellitus: Code(s): E11.9 - Type 2 diabetes mellitus without complications Status: Acute Assessment and Plan: better after iv steroid discontinued (6) Constipation: Code(s): K59.00 - Constipation, unspecified Status: Acute Assessment and Plan: miralax Subjective Date/time seen: 02/24/24 16:51 Interval history: still has not had a good BM and noted some rectal bleeding after straining Review of Systems Review of Systems: All systems reviewed & are unremarkable except as noted in HPI and below Exam Const: General: comfortable and no acute distress HENMT: Face/Nose/Sinus: Normal nares present Eyes: General: appearance normal, both eyes and all related structures Neck: Neck: supple Resp: Auscultation: clear to auscultation bilaterally Cardio: Rate: regular rate Rhythm: regular rhythm GI: Inspection: non-distended GI Palp: Yes Soft to palpation and No Tenderness to palpation present (GI) Auscultation: normal bowel sounds Skin: General skin exam: normal color Neuro: Speech: normal speech Motor exam (neuro): 5/5 motor strength present throughout Extrem: Other: trace leg edema Psych: Mental Status: mental status grossly normal Objective Data Vital Signs Vital Signs: Vital Signs - 24 hr 02/23/24 22:00 02/23/24 20:00 02/24/24 05:47 Temperature 98.4 F 97.1 F L Pulse Rate 87 87 86 Respiratory Rate 18 18 18 Blood Pressure 123/80 149/90 H Pulse Oximetry 96 96 100 Oxygen Delivery Room Air Fraction of Inspired Oxygen 21 02/24/24 08:19 02/24/24 08:55 02/24/24 10:47 Temperature 98.6 F Pulse Rate 84 Respiratory Rate 18 Blood Pressure 133/78 Pulse Oximetry 100 Oxygen Delivery Room Air Room Air Fraction of Inspired Oxygen 02/24/24 08:00 02/24/24 14:00 Temperature 97.1 F L Pulse Rate 82 Respiratory Rate 18 Blood Pressure 120/44 L Pulse Oximetry 94 Oxygen Delivery Room Air Fraction of Inspired Oxygen Intake/Output Intake/Output: Intake & Output 02/21/24 02/22/24 02/23/24 02/24/24 23:59 23:59 23:59 23:59 Intake Total 2463.3 1761.7 1200 1820 Output Total 1100 Balance 2463.3 1761.7 100 1820 Meds/Results Medications: Active Medications Generic Name Dose Route Start Last Admin Trade Name Freq PRN Reason Stop Dose Admin Acetaminophen 650 mg 02/20/24 19:39 02/24/24 12:55 Acetaminophen 325 Mg Tablet PO 650 mg Q4H PRN Administration Mild Pain (1-3) or Fever Alprazolam 0.25 mg 02/22/24 17:31 02/24/24 09:35 Alprazolam (*Crx) 0.25 Mg Tablet PO 0.25 mg BID PRN Administration Anxiety Atorvastatin Calcium 10 mg 02/21/24 09:00 02/24/24 09:30 Atorvastatin 10 Mg Tablet PO 10 mg QAM LOUANN Administration Clotrimazole 1 applic 02/21/24 21:00 02/24/24 09:31 Betamethasone/Clotrimazole Cream 45 Gm Tube TOPICAL 1 applic Q12HR LOUANN Administration Dextrose
[2024-02-24] MEDS: LACTULOSE 20 GM/30 ML UDC PO (17:36)
[2024-02-24 20:35] LABS: Glucose Point of Care 255 mg/dl (65-105)
[2024-02-24] MEDS: LORATADINE 10 MG TABLET PO (20:56)
[2024-02-24] MEDS: ZOLPIDEM TARTRATE (*CRX) 5 MG TABLET 10 MG PO (20:57)
[2024-02-24] MEDS: PANTOPRAZOLE 40 MG TABLET PO (20:57)
[2024-02-24] MEDS: MESALAMINE 1,000 MG SUPP.RECT 1000 MG RECTAL (20:57)
[2024-02-24 20:58] VITALS: BP 158/80; PULSE 78; RESP 18; TEMP 36.4; O2SAT 100
[2024-02-24] MEDS: INSULIN GLARGINE (*BKC) 100 UNITS/ML 15 UNITS SUB-Q (21:41)
[2024-02-24 21:54] LABS: Glucose Point of Care 196 mg/dl (65-105)
[2024-02-24 22:05] LABS: Hematocrit 31.4 % (37.0-47.0); Hemoglobin 9.7 g/dL (12.0-15.0)
[2024-02-24 22:11] VITALS: O2SAT 98
[2024-02-25 05:22] VITALS: BP 148/77; PULSE 70; RESP 16; TEMP 36.4; O2SAT 100
[2024-02-25 06:34] LABS: Basophils Percent Auto 0.1 % (0.2-1.2); Eosinophils Absolute Auto 0.1 K/mm3 (0-0.3); Eosinophils Percent Auto 0.4 % (0-4.4); Hematocrit 31.8 % (37.0-47.0); Hemoglobin 9.8 g/dL (12.0-15.0); Immature Granulocyte Absolute 0.09 K/mm3 (0.00-0.031); Immature Granulocyte Percent A 0.7 % (0-0.5); Lymphocytes Absolute Auto 1.48 K/mm3 (0.9-3.2); Lymphocytes Percent Auto 11.5 % (18.3-44.2); Mean Corpuscular HGB Conc 30.8 g/dl (32-36); Mean Corpuscular Hemoglobin 29.9 pg (26-34); Mean Platelet Volume 11.1 fl (7.4-10.4); Monocytes Absolute Auto 0.9 K/mm3 (0.1-0.6); Monocytes Percent Auto 7.1 % (2.6-8.5); Neutrophils Absolute Auto 10.3 K/mm3 (1.3-6.7); Neutrophils Percent Auto 80.2 % (45.5-73.1); Nucleated Red Blood Cells Perc 0.2 % (0.0-0.2); Platelet Count Result 260 k/mm3 (150-375); Red Blood Count 3.28 M/mm3 (4.2-5.4); Red Cell Distribution Width 16.4 % (11.5-14.5); White Blood Count 12.9 K/mm3 (4.5-10.0)
[2024-02-25 06:57] LABS: Alanine Aminotransferase 27 U/L (6-35); Albumin Level 3.9 g/dL (3.5-5.1); Alkaline Phosphatase 71 U/L (38-126); Anion Gap 8 mmol/L (4-12); Aspartate Amino Transferase 29 U/L (14-36); Bilirubin,Total 0.5 mg/dL (0.2-1.3); Blood Urea Nitrogen 17 mg/dL (7-17); Calcium 8.8 mg/dL (8.4-10.2); Carbon Dioxide 26 mmol/L (22-30); Chloride 100 mmol/L (98-107); Estimated CRCL calculation 66 ml/min; Estimated Glomerular Filt Rate 58; Glucose 154 mg/dL (65-110); Magnesium 1.9 mg/dL (1.6-2.3); Potassium 3.9 mmol/L (3.4-5.0); Sodium 134 mmol/L (137-145)
[2024-02-25] MEDS: VITAMIN E 1,000 UNIT CAPSULE 1000 UNIT PO (09:18)
[2024-02-25] MEDS: SENNA/DOCUSATE SODIUM TABLET 1 TAB PO (09:18)
[2024-02-25] MEDS: INSULIN ASPART (*BKC) 100 UNITS/ML SUB-Q ×3 (09:18→13:00)
[2024-02-25] MEDS: FERROUS SULFATE 325 MG TABLET DR PO (09:18)
[2024-02-25] MEDS: ATORVASTATIN 10 MG TABLET PO (09:18)
[2024-02-25 09:19] VITALS: PULSE 72
[2024-02-25] MEDS: METOPROLOL SUCCINATE EXT REL 25 MG TABCR PO (09:19)
[2024-02-25] MEDS: polyethylene glycoL 3350 17 GM POWD.PACK PO (09:19)
[2024-02-25] MEDS: SILVER SULFADIAZINE 1% CR 50 GM JAR (*BKC) 1 APPLIC TOPICAL (09:34)
[2024-02-25] MEDS: BETAMETHASONE/CLOTRIMAZOLE CREAM 45 GM TUBE 1 APPLIC TOPICAL (09:34)
[2024-02-25 10:28] LABS: Glucose Point of Care 149 mg/dl (65-105)
--- NOTE | 2024-02-25 12:35 | PM.DS ---
DS: Admitting Diagnosis Discharge Date 02/25/2024 Admitting Diagnosis Proctitis DS: Summary Hospital Course Hospital Course: This is a 53-year-old female with past medical history significant for psoriatic arthritis, IgA nephropathy, chronic kidney disease, hypertension, rheumatoid arthritis, steroid induced diabetes. Patient presents to the emergency room due to rectal bleed. Abdominal distension, abdominal pain. preliminary workup was significant for hemoglobin of 7.7. Patient has been admitted for further evaluation management and treatment. She had colonoscopy about 2 months ago when had rectal bleeding, diagnosed with proctitis and started using canasa supp, here with bleeding again, hgb down to mid 7, given blood transfusion. She also had few years ago LGIB probably due to diverticulosis and required blood transfusion. After 2 units of blood transfusion patient hemoglobin was stable. Today we restarted her medication losartan and spironolactone. We advised her to follow-up with the PCP in regards to continuation of current medication low both losartan and spironolactone. Patient needs to follow-up with the GI in a week. As per GH she does not need any steroid but only to continue with mesalamine suppository. Patient metformin also has been restarted but we strongly recommended recommended her to follow up with Endocrine. Time Spent with Patient Time attestation: Total time spent providing and/or coordinating discharge services: 45 minutes DS: Data Data Completed and Pending Labs on day of discharge: Labs from last 24 hours 02/25/24 02/25/24 02/24/24 09:16 06:02 21:55 WBC 12.9 H RBC 3.28 L Hgb 9.8 L 9.7 L Hct 31.8 L 31.4 L MCV 97.0 MCH 29.9 MCHC 30.8 L RDW 16.4 H Plt Count 260 MPV 11.1 H Immature Gran % (Auto) 0.7 H Neut % (Auto) 80.2 H Lymph % (Auto) 11.5 L [place] % (Auto) 7.1 Eos % (Auto) 0.4 Baso % (Auto) 0.1 L Lymph # (Auto) 1.48 [place] # (Auto) 0.9 H Eos # (Auto) 0.1 Baso # (Auto) 0.0 Abs Immat Gran (auto) 0.09 H Absolute Neuts (auto) 10.3 H Absolute Nucleated RBC 0.030 H Nucleated RBC % 0.2 Sodium 134 L Potassium 3.9 Chloride 100 Carbon Dioxide 26 Anion Gap 8 BUN 17 Creatinine 1.00 Estim Creat Clear Calc 66 Estimated GFR 58 L Glucose 154 H POC Capillary Glucose 149 H Calcium 8.8 Magnesium 1.9 Total Bilirubin 0.5 AST 29 ALT 27 Alkaline Phosphatase 71 Total Protein 7.0 Albumin 3.9 02/24/24 02/24/24 02/24/24 21:46 20:15 16:49 WBC RBC Hgb Hct MCV MCH MCHC RDW Plt Count MPV Immature Gran % (Auto) Neut % (Auto) Lymph % (Auto) [place] % (Auto) Eos % (Auto) Baso % (Auto) Lymph # (Auto) [place] # (Auto) Eos # (Auto) Baso # (Auto) Abs Immat Gran (auto) Absolute Neuts (auto) Absolute Nucleated RBC Nucleated RBC % Sodium Potassium Chloride Carbon Dioxide Anion Gap BUN Creatinine Estim Creat Clear Calc Estimated GFR Glucose POC Capillary Glucose 196 H 255 H 212 H Calcium Magnesium Total Bilirubin AST ALT Alkaline Phosphatase Total Protein Albumin Imaging Radiologist's impression: ITS Impressions Chest X-Ray 02/21/24 05:58 IMPRESSION: 1. Mild atelectasis in the lower lung zones. Abdomen/Pelvis CT 02/21/24 09:25 IMPRESSION: 1. 8.1 cm cyst in right ovary that measured 5.9 cm on 02/09/2021, probably benign. Pelvis ultrasound is recommended. Chest X-Ray 02/23/24 15:30 Impression: 1: No acute cardiopulmonary disease. Discharge Plan Discharge Attending physician on discharge: Jorge Hodges Consulting providers: Irwin Chiu Discharging Clinician: Jorge Hodges Anticipated Discharge Date/Time: 02/25/24 12:23 Patient Disposition: Home, Self-Care Activity: a
[2024-02-25 12:58] LABS: Glucose Point of Care 237 mg/dl (65-105)
[2024-02-26 15:03] LABS: NIL 0.01 IU/mL; Quantiferon TB Plus, 1T NEGATIVE (NEGATIVE)
== END 2024-02-25 13:35 | disposition home or self-care (01) | DRG 394 ==
LOC: ANHED 16:42 → ANH3MEDSUR 20:23
PROVIDERS: Nurse Practitioner Acute Care; Admitting Provider Internal Medicine; Emergency Provider Emergency Medicine; PCP Family Medicine; Visit Provider General Practice
DX: K62.89 Other specified diseases of anus and rectum (principal); D62 Acute posthemorrhagic anemia; K62.5 Hemorrhage of anus and rectum; N02.B1 Recurrent and persistent immunoglobulin A nephropathy with glomerular lesion; N17.9 Acute kidney failure, unspecified; D53.9 Nutritional anemia, unspecified; K64.9 Unspecified hemorrhoids; L40.50 Arthropathic psoriasis, unspecified; E11.22 Type 2 diabetes mellitus with diabetic chronic kidney disease; N18.9 Chronic kidney disease, unspecified; E11.65 Type 2 diabetes mellitus with hyperglycemia; T38.0X5A Adverse effect of glucocorticoids and synthetic analogues, initial encounter; I10 Essential (primary) hypertension; K59.00 Constipation, unspecified; F41.9 Anxiety disorder, unspecified; K21.9 Gastro-esophageal reflux disease without esophagitis; M06.9 Rheumatoid arthritis, unspecified; Z90.49 Acquired absence of other specified parts of digestive tract; Z90.710 Acquired absence of both cervix and uterus
CPT/HCPCS: 36415; 36430; 36600; 71045; 74176; 80053; 80074; 82375; 82805; 82948; 83036; 83050; 83605; 83735; 85014; 85018; 85025; 85610; 85730; 86140; 86480; 86850; 86900; 86901; 86923; 87536; 96361; 96365; 96366; 96367; 96368; 96374; 96375; 96376; 97161; 97165; 99285; A9270; G0378; J0744; J1815; J1836; J2270; J2405; J2919; J7030; J7050; P9016